=== PATIENT | male | born 1955 | race Caucasian/White ===

== ENCOUNTER 2018-10-12 07:02 | Emergency (ER) | payer BC, OTHER ==
[~2018-10-12] VITALS: Ht 165.1 cm; Wt 90.7 kg
[~2018-10-12 07:02] MED LIST: AMOXICILLIN; CEFDINIR300 MG PO; PREDNISONE10 M2; PYRIDIUM200 M1 PO; Z.0.CEFTIN500 MG PO; Z.0.ENABLEX7.5 MG PO; Z.0.NORCO 10-325 T1 PO; Z.0.PREDNISONE10 MG PO; [UNRECOGNIZED DRUG - OTHER] PO
[2018-10-12 07:44] VITALS: BP 148/78
== END 2018-10-12 07:45 | disposition left against medical advice (07) ==
LOC: ER 07:02
DX: N50.1 Vascular disorders of male genital organs (principal)

== ENCOUNTER → 2022-02-21 | Outpatient (CLI) | payer MEDICARE, OTHER | LOC: RAD 15:09 | DX: R06.02 Shortness of breath (principal); R60.9 Edema, unspecified | CPT/HCPCS: 71046 ==

== ENCOUNTER → 2022-04-25 | Outpatient (CLI) | payer MEDICARE, OTHER | LOC: US 10:26 | PROVIDERS: ATTEND Internal Medicine Medical Oncology | DX: C91.10 Chronic lymphocytic leukemia of B-cell type not having achieved remission (principal) | CPT/HCPCS: 71046; 76700; 76857 ==

== ENCOUNTER 2022-05-28 01:19 | Inpatient (IN) | payer MEDICARE, OTHER ==
[~2022-05-28] VITALS: Ht 165.1 cm; Wt 78.5 kg
[2022-05-28 01:45] LABS: EOSINOPHILS # (AUTO) 0.1 (0.0-0.4); EOSINOPHILS % 8.7 % (0.0-6.0); HEMATOCRIT 23.1 % (38.2-49.6); LYMPHOCYTES # (AUTO) 0.3 (1.0-3.2); LYMPHOCYTES % 29.6 % (18.0-39.1); MEAN CORPUSCULAR HEMOGLOBIN 29.3 pg (28-32); MEAN CORPUSCULAR HGB CONC 29.4 g/dL (31-35); MEAN CORPUSCULAR VOLUME 99.6 fL (81-99); MONOCYTES % 1.7 % (4.4-11.3); NEUTROPHILS # (AUTO) 0.7 (2.1-6.9); NEUTROPHILS % 59.1 % (38.7-80.0); PLATELET COUNT 84 x10e3/uL (140-360); RED BLOOD COUNT 2.32 x10e6/uL (4.3-5.7); RED CELL DISTRIBUTION WIDTH 16.9 % (11.7-14.4)
[2022-05-28] MEDS ORDERED: ACETAMINOPHEN 325 MG TAB PO ONE (01:45)
[2022-05-28] MEDS ORDERED: SODIUM CHLORIDE 0.9% 1000ML 1,000 ML IV SCH ×2 (01:45)
[2022-05-28] MEDS ORDERED: DIPHENHYDRAMINE HCL INJ 50 MG/ML VIAL IV ONE (01:45)
[2022-05-28 01:47] LABS: HEMOGLOBIN 7.1 g/dL (14.0-18.0)
[2022-05-28] MEDS: Vancomycin IV 1 GM in SODIUM CHLORIDE 0.9% 250ML 250 ML IV SCH ×3 (01:48→12:59)
[2022-05-28 01:49] LABS: INR 1.08
[2022-05-28] MEDS: FAMOTIDINE 20 MG/2 ML VIAL IV SCH ×2 (01:49→17:26)
[2022-05-28 01:50] LABS: PARTIAL THROMBOPLASTIN TIME 42.1 seconds (23.8-35.5)
[2022-05-28] MEDS ORDERED: Vancomycin IV 1 GM VIAL ONE (01:54)
[2022-05-28] MEDS ORDERED: PIPERACILLIN/TAZOBACTAM 3.375 GM VIAL ONE (01:54)
[2022-05-28] MEDS ORDERED: SODIUM CHLORIDE 0.9% 250ML 250 ML ONE ×2 (01:55→13:09)
[2022-05-28 01:58] LABS: ALBUMIN 3.5 g/dL (3.5-5.0); ALBUMIN/GLOBULIN RATIO 1.3 (0.8-2.0); ANION GAP 12.7 mmol/L (8-16); CALCIUM 8.9 mg/dL (8.4-10.2); CREATININE, SERUM 1.24 mg/dL (0.72-1.25); POTASSIUM 3.7 mmol/L (3.5-5.1)
[2022-05-28] MEDS ORDERED: SODIUM CHLORIDE 0.9% 1000ML 2,000 ML ONE (02:04)
[2022-05-28 02:07] LABS: INFLUENZAE A&B ANTIGEN (RAPID) NEGATIVE (NEGATIVE); RESPIRATORY SYNC. VIRUS NEGATIVE (NEGATIVE)
[2022-05-28 03:35] LABS: CLARITY,URINE CLEAR (CLEAR); COLOR,URINE YELLOW (YELLOW); KETONES,URINE NEGATIVE (NEGATIVE); LEUKOCYTE ESTERASE ,URINE NEGATIVE (NEGATIVE); NITRITE,URINE NEGATIVE (NEGATIVE); PROTEIN,URINE DIPSTICK 1+ (NEGATIVE); URINE UROBILINOGEN 0.2 mg/dL (0.2 - 1)
[2022-05-28 03:40] LABS: AMORPHOUS SEDIMENT,URINE FEW (FEW); BACTERIA,URINE FEW /HPF; EPITHELIAL CELLS,URINE RARE /LPF; RBC,URINE 0-5 /HPF (0-5); WBC,URINE (MAN) 0-5 /HPF (0-5)
[2022-05-28] MEDS ORDERED: ONDANSETRON HCL INJ 2MG/ML 2ML 2 MG/ML VIAL IV PRN (04:15)
[2022-05-28] MEDS ORDERED: DIPHENHYDRAMINE HCL INJ 50 MG/ML VIAL IV PRN (04:15)
[2022-05-28] MEDS: SODIUM CHLORIDE 0.9% 1000ML 1,000 ML IV SCH ×2 (04:58→17:26)
[2022-05-28 06:20] VITALS: BP 96/54
[2022-05-28 08:30] VITALS: BP 96/54
[2022-05-28 08:34] VITALS: BP 109/61
[2022-05-28] MEDS ORDERED: ALLOPURINOL300 MG PO (11:27)
[2022-05-28] MEDS ORDERED: FLONASE ALLERG9.9 ML INH (11:31)
[2022-05-28] MEDS ORDERED: FOLIC ACID20 MG PO (11:31)
[2022-05-28] MEDS ORDERED: UBIQUINOL (11:31)
[2022-05-28] MEDS ORDERED: OMEGA FISH OIL PO (11:34)
[2022-05-28] MEDS ORDERED: HYDROCORTISON28.4 G2 TOP (11:35)
[2022-05-28 11:53] VITALS: BP 97/48
[2022-05-28] MEDS: FILGRASTIM-AAFI 480 MCG/0.8 ML SYRINGE SQ SCH (11:57)
[2022-05-28 16:17] VITALS: BP 100/55
[2022-05-28 20:00] VITALS: BP 106/53
[2022-05-29] VITALS (7 sets, daily range): BP systolic 85–120; BP diastolic 43–73
[2022-05-29] MEDS: Vancomycin IV 1 GM in SODIUM CHLORIDE 0.9% 250ML 250 ML IV SCH ×3 (01:55→17:35)
[2022-05-29 05:14] LABS: BASOPHILS % 0.6 % (0.0-1.0); EOSINOPHILS # (AUTO) 0.2 (0.0-0.4); EOSINOPHILS % 9.9 % (0.0-6.0); HEMATOCRIT 20.9 % (38.2-49.6); LYMPHOCYTES # (AUTO) 0.5 (1.0-3.2); LYMPHOCYTES % 28.2 % (18.0-39.1); MEAN CORPUSCULAR HEMOGLOBIN 28.8 pg (28-32); MEAN CORPUSCULAR HGB CONC 28.7 g/dL (31-35); MEAN CORPUSCULAR VOLUME 100.5 fL (81-99); MONOCYTES # (AUTO) 0.1 (0.2-0.8); MONOCYTES % 3.3 % (4.4-11.3); NEUTROPHILS % 56.3 % (38.7-80.0); PLATELET COUNT 81 x10e3/uL (140-360); RED BLOOD COUNT 2.08 x10e6/uL (4.3-5.7); RED CELL DISTRIBUTION WIDTH 16.6 % (11.7-14.4)
[2022-05-29 05:33] LABS: ALBUMIN 2.9 g/dL (3.5-5.0); ALBUMIN/GLOBULIN RATIO 1.4 (0.8-2.0); ANION GAP 13.4 mmol/L (8-16); CALCIUM 8.1 mg/dL (8.4-10.2); CREATININE, SERUM 1.27 mg/dL (0.72-1.25); POTASSIUM 4.4 mmol/L (3.5-5.1)
[2022-05-29] MEDS: FILGRASTIM-AAFI 480 MCG/0.8 ML SYRINGE SQ SCH (05:52)
[2022-05-29] MEDS: SODIUM CHLORIDE 0.9% 1000ML 1,000 ML IV SCH (05:53)
[2022-05-29] MEDS: FAMOTIDINE 20 MG/2 ML VIAL IV SCH ×2 (09:06→16:45)
[2022-05-29] MEDS ORDERED: SODIUM CHLORIDE 0.9% 250ML 250 ML IV NR (11:00)
[2022-05-29 11:33] LABS: BAND NEUTROPHILS % (MANUAL) 11 %; EOSINOPHILS % (MANUAL) 11 % (0-7); LYMPHOCYTES % (MANUAL) 41 % (19-48); METAMYELOCYTES % (MANUAL) 1 % (0-0); MONOCYTES % (MANUAL) 4 % (3.4-9.0); NEUTROPHILS % (MANUAL) 31 % (40-74)
[2022-05-29 11:43] LABS: HYPOCHROMASIA MODERATE; PLATELET ESTIMATE SLIGHTLY DECREASED; PLATELET MORPHOLOGY COMMENT NORMAL
[2022-05-29] MEDS ORDERED: SODIUM CHLORIDE 0.9% 1000ML 1,000 ML IV SCH (12:15)
[2022-05-29] MEDS ORDERED: SODIUM CHLORIDE 0.9% 1000ML 1,000 ML IV ONE (13:30)
[2022-05-29] MEDS ORDERED: SODIUM CHLORIDE 0.9% 250ML 250 ML ONE (14:57)
[2022-05-29] MEDS: ZINC ACETATE TP SCH (15:00)
[2022-05-29] MEDS: CALAMINE LOTION 4 OZ BOTTLE TP SCH (15:00)
[2022-05-29] MEDS: PRAMOXINE TP SCH (15:00)
[2022-05-29] MEDS: ACETAMINOPHEN 325 MG TAB PO PRN ×2 (16:45→22:50)
[2022-05-30] VITALS: BP_SYST 84; BP_SYST 96; BP_DIAS 42; BP_DIAS 43
[2022-05-30] MEDS: PRAMOXINE TP SCH ×4 (03:10→20:56)
[2022-05-30] MEDS: CALAMINE LOTION 4 OZ BOTTLE TP SCH ×2 (03:10→08:11)
[2022-05-30] MEDS: ZINC ACETATE TP SCH ×4 (03:10→20:56)
[2022-05-30] MEDS: SODIUM CHLORIDE 0.9% 1000ML 1,000 ML IV SCH ×3 (03:11→23:15)
[2022-05-30] MEDS: Vancomycin IV 1 GM in SODIUM CHLORIDE 0.9% 250ML 250 ML IV SCH ×2 (03:11→13:45)
[2022-05-30 04:00] VITALS: BP 126/73
[2022-05-30] MEDS: FILGRASTIM-AAFI 480 MCG/0.8 ML SYRINGE SQ SCH (05:27)
[2022-05-30 06:10] LABS: BASOPHILS % 0.5 % (0.0-1.0); EOSINOPHILS # (AUTO) 0.3 (0.0-0.4); EOSINOPHILS % 13.6 % (0.0-6.0); HEMATOCRIT 23.4 % (38.2-49.6); HEMOGLOBIN 6.7 g/dL (14.0-18.0); LYMPHOCYTES # (AUTO) 0.6 (1.0-3.2); LYMPHOCYTES % 27.3 % (18.0-39.1); MEAN CORPUSCULAR HEMOGLOBIN 28.6 pg (28-32); MEAN CORPUSCULAR HGB CONC 28.6 g/dL (31-35); MONOCYTES # (AUTO) 0.1 (0.2-0.8); MONOCYTES % 3.2 % (4.4-11.3); NEUTROPHILS % 43.1 % (38.7-80.0); PLATELET COUNT 84 x10e3/uL (140-360); RED BLOOD COUNT 2.34 x10e6/uL (4.3-5.7)
[2022-05-30 06:43] LABS: ALBUMIN 2.8 g/dL (3.5-5.0); ALBUMIN/GLOBULIN RATIO 1.3 (0.8-2.0); ANION GAP 13.6 mmol/L (8-16); CALCIUM 7.8 mg/dL (8.4-10.2); CREATININE, SERUM 1.1 mg/dL (0.72-1.25); POTASSIUM 3.6 mmol/L (3.5-5.1)
[2022-05-30] MEDS: FAMOTIDINE 20 MG/2 ML VIAL IV SCH ×2 (08:11→17:37)
[2022-05-30 09:15] LABS: BAND NEUTROPHILS % (MANUAL) 1 %; EOSINOPHILS % (MANUAL) 13 % (0-7); LYMPHOCYTES % (MANUAL) 17 % (19-48); MONOCYTES % (MANUAL) 3 % (3.4-9.0); MYELOCYTES % (MANUAL) 1 % (0-0); NEUTROPHILS % (MANUAL) 64 % (40-74); PLATELET ESTIMATE ADEQUATE; PLATELET MORPHOLOGY COMMENT NORMAL; RBC MORPHOLOGY COMMENT NORMAL
[2022-05-30] MEDS ORDERED: SODIUM CHLORIDE 0.9% 250ML 250 ML IV ONE (09:15)
[2022-05-30 09:23] VITALS: BP 119/63
[2022-05-30 09:56] LABS: BASOPHILS % 0.5 % (0.0-1.0); EOSINOPHILS # (AUTO) 0.2 (0.0-0.4); EOSINOPHILS % 11.1 % (0.0-6.0); HEMATOCRIT 23.9 % (38.2-49.6); LYMPHOCYTES # (AUTO) 0.4 (1.0-3.2); LYMPHOCYTES % 22.6 % (18.0-39.1); MEAN CORPUSCULAR HEMOGLOBIN 28.8 pg (28-32); MEAN CORPUSCULAR HGB CONC 28.9 g/dL (31-35); MEAN CORPUSCULAR VOLUME 99.6 fL (81-99); MONOCYTES # (AUTO) 0.1 (0.2-0.8); MONOCYTES % 3.2 % (4.4-11.3); NEUTROPHILS # (AUTO) 0.9 (2.1-6.9); NEUTROPHILS % 44.7 % (38.7-80.0); PLATELET COUNT 84 x10e3/uL (140-360); RED CELL DISTRIBUTION WIDTH 17.1 % (11.7-14.4)
[2022-05-30] MEDS ORDERED: ONDANSETRON HCL 4 MG ORAL DISINTEGRATING TAB PO PRN (10:15)
[2022-05-30 10:21] LABS: HEMOGLOBIN 6.9 g/dL (14.0-18.0)
[2022-05-30] MEDS: ACETAMINOPHEN 325 MG TAB PO PRN ×3 (10:51→23:45)
[2022-05-30 13:56] LABS: EOSINOPHILS % (MANUAL) 4 % (0-7); LYMPHOCYTES % (MANUAL) 21 % (19-48); METAMYELOCYTES % (MANUAL) 1 % (0-0); MONOCYTES % (MANUAL) 1 % (3.4-9.0); NEUTROPHILS % (MANUAL) 73 % (40-74); PLATELET ESTIMATE MODERATELY DECREASED; PLATELET MORPHOLOGY COMMENT NORMAL; RBC MORPHOLOGY COMMENT NORMAL
[2022-05-30 20:00] VITALS: BP 103/49
[2022-05-30 21:00] VITALS: BP 103/49
[2022-05-30 23:58] VITALS: BP 112/53
[2022-05-31] MEDS: Vancomycin IV 1 GM in SODIUM CHLORIDE 0.9% 250ML 250 ML IV SCH ×2 (01:30→14:20)
[2022-05-31 04:00] VITALS: BP 115/49
[2022-05-31] MEDS: FILGRASTIM-AAFI 480 MCG/0.8 ML SYRINGE SQ SCH (06:03)
[2022-05-31] MEDS: ACETAMINOPHEN 325 MG TAB PO PRN ×3 (06:20→22:25)
[2022-05-31 06:23] LABS: BASOPHILS % 0.8 % (0.0-1.0); EOSINOPHILS # (AUTO) 0.4 (0.0-0.4); EOSINOPHILS % 14.8 % (0.0-6.0); HEMATOCRIT 25.8 % (38.2-49.6); HEMOGLOBIN 8.4 g/dL (14.0-18.0); LYMPHOCYTES # (AUTO) 0.5 (1.0-3.2); LYMPHOCYTES % 20.1 % (18.0-39.1); MEAN CORPUSCULAR HGB CONC 32.6 g/dL (31-35); MEAN CORPUSCULAR VOLUME 95.2 fL (81-99); MONOCYTES # (AUTO) 0.1 (0.2-0.8); MONOCYTES % 3.7 % (4.4-11.3); NEUTROPHILS # (AUTO) 1.5 (2.1-6.9); NEUTROPHILS % 60.2 % (38.7-80.0); PLATELET COUNT 80 x10e3/uL (140-360); RED BLOOD COUNT 2.71 x10e6/uL (4.3-5.7); RED CELL DISTRIBUTION WIDTH 17.5 % (11.7-14.4)
[2022-05-31] MEDS: FAMOTIDINE 20 MG/2 ML VIAL IV SCH ×2 (08:12→16:13)
[2022-05-31] MEDS: ZINC ACETATE TP SCH ×3 (08:15→21:00)
[2022-05-31] MEDS: PRAMOXINE TP SCH ×3 (08:15→21:00)
[2022-05-31 08:21] LABS: ANISOCYTOSIS SLIGHT; BAND NEUTROPHILS % (MANUAL) 1 %; EOSINOPHILS % (MANUAL) 17 % (0-7); HYPOCHROMASIA SLIGHT; LYMPHOCYTES % (MANUAL) 16 % (19-48); MONOCYTES % (MANUAL) 3 % (3.4-9.0); NEUTROPHILS % (MANUAL) 62 % (40-74); OVALOCYTES FEW; PLATELET ESTIMATE MODERATELY DECREASED; PLATELET MORPHOLOGY COMMENT NORMAL; RBC MORPHOLOGY COMMENT NORMAL
[2022-05-31 08:22] LABS: TOXIC GRANULATION MODERATE
[2022-05-31 08:25] VITALS: BP 125/70
[2022-05-31] MEDS: HYDROXYZINE HCL 10 MG TAB PO PRN ×3 (09:52→22:25)
[2022-05-31 10:08] VITALS: BP 125/70
[2022-05-31 13:24] VITALS: BP 101/63
[2022-05-31] MEDS: SODIUM CHLORIDE 0.9% 1000ML 1,000 ML IV SCH (14:16)
[2022-05-31 17:27] VITALS: BP 132/82
[2022-05-31 23:41] VITALS: BP 95/45
[2022-06-01] VITALS (8 sets, daily range): BP systolic 108–134; BP diastolic 20–69
[2022-06-01] MEDS: Vancomycin IV 1 GM in SODIUM CHLORIDE 0.9% 250ML 250 ML IV SCH ×2 (02:09→12:56)
[2022-06-01] MEDS: SODIUM CHLORIDE 0.9% 1000ML 1,000 ML IV SCH ×3 (02:09→22:10)
[2022-06-01 05:46] LABS: BASOPHILS % 0.4 % (0.0-1.0); EOSINOPHILS # (AUTO) 0.4 (0.0-0.4); EOSINOPHILS % 15.7 % (0.0-6.0); HEMATOCRIT 26.7 % (38.2-49.6); HEMOGLOBIN 7.9 g/dL (14.0-18.0); LYMPHOCYTES # (AUTO) 0.5 (1.0-3.2); LYMPHOCYTES % 20.2 % (18.0-39.1); MEAN CORPUSCULAR HEMOGLOBIN 28.7 pg (28-32); MEAN CORPUSCULAR HGB CONC 29.6 g/dL (31-35); MEAN CORPUSCULAR VOLUME 97.1 fL (81-99); MONOCYTES # (AUTO) 0.1 (0.2-0.8); MONOCYTES % 3.7 % (4.4-11.3); NEUTROPHILS # (AUTO) 1.6 (2.1-6.9); NEUTROPHILS % 58.9 % (38.7-80.0); RED BLOOD COUNT 2.75 x10e6/uL (4.3-5.7); RED CELL DISTRIBUTION WIDTH 16.5 % (11.7-14.4)
[2022-06-01 05:57] LABS: PLATELET COUNT 143 x10e3/uL (140-360)
[2022-06-01] MEDS: FILGRASTIM-AAFI 480 MCG/0.8 ML SYRINGE SQ SCH (06:36)
[2022-06-01] MEDS: HYDROXYZINE HCL 10 MG TAB PO PRN ×2 (06:36→22:11)
[2022-06-01 06:55] LABS: BAND NEUTROPHILS % (MANUAL) 1 %; EOSINOPHILS % (MANUAL) 17 % (0-7); LYMPHOCYTES % (MANUAL) 19 % (19-48); MONOCYTES % (MANUAL) 3 % (3.4-9.0); NEUTROPHILS % (MANUAL) 60 % (40-74)
[2022-06-01 06:56] LABS: ANISOCYTOSIS SLIGHT; PLATELET ESTIMATE ADEQUATE; PLATELET MORPHOLOGY COMMENT NORMAL; RBC MORPHOLOGY COMMENT ABNORMAL
[2022-06-01 06:57] LABS: HYPOCHROMASIA SLIGHT; OVALOCYTES FEW; TOXIC GRANULATION MODERATE
[2022-06-01] MEDS: ZINC ACETATE TP SCH ×4 (09:17→21:00)
[2022-06-01] MEDS: PRAMOXINE TP SCH ×4 (09:17→21:00)
[2022-06-01] MEDS: FAMOTIDINE 20 MG/2 ML VIAL IV SCH ×2 (09:17→17:28)
[2022-06-01] MEDS: ACETAMINOPHEN 325 MG TAB PO PRN (22:11)
[2022-06-02] VITALS (7 sets, daily range): BP systolic 95–144; BP diastolic 40–80
[2022-06-02] MEDS: Vancomycin IV 1 GM in SODIUM CHLORIDE 0.9% 250ML 250 ML IV SCH ×2 (02:00→16:30)
[2022-06-02 05:56] LABS: BASOPHILS # (AUTO) 0.1 (0.0-0.1); BASOPHILS % 2.2 % (0.0-1.0); EOSINOPHILS # (AUTO) 0.6 (0.0-0.4); EOSINOPHILS % 15.9 % (0.0-6.0); HEMATOCRIT 28.5 % (38.2-49.6); HEMOGLOBIN 8.4 g/dL (14.0-18.0); LYMPHOCYTES # (AUTO) 0.8 (1.0-3.2); LYMPHOCYTES % 21.4 % (18.0-39.1); MEAN CORPUSCULAR HEMOGLOBIN 29.9 pg (28-32); MEAN CORPUSCULAR HGB CONC 29.5 g/dL (31-35); MEAN CORPUSCULAR VOLUME 101.4 fL (81-99); MONOCYTES # (AUTO) 0.2 (0.2-0.8); MONOCYTES % 4.1 % (4.4-11.3); NEUTROPHILS % 55.3 % (38.7-80.0); PLATELET COUNT 163 x10e3/uL (140-360); RED BLOOD COUNT 2.81 x10e6/uL (4.3-5.7)
[2022-06-02] MEDS: FILGRASTIM-AAFI 480 MCG/0.8 ML SYRINGE SQ SCH (06:21)
[2022-06-02 06:56] LABS: BAND NEUTROPHILS % (MANUAL) 1 %; EOSINOPHILS % (MANUAL) 14 % (0-7); LYMPHOCYTES % (MANUAL) 23 % (19-48); MONOCYTES % (MANUAL) 1 % (3.4-9.0); NEUTROPHILS % (MANUAL) 61 % (40-74); NUCLEATED RED BLOOD CELLS 1
[2022-06-02 06:57] LABS: HYPOCHROMASIA MODERATE; OVALOCYTES FEW; PLATELET ESTIMATE ADEQUATE; PLATELET MORPHOLOGY COMMENT NORMAL; RBC MORPHOLOGY COMMENT ABNORMAL
[2022-06-02 06:58] LABS: ANISOCYTOSIS MODERATE; TOXIC GRANULATION SLIGHT
[2022-06-02] MEDS: PRAMOXINE TP SCH ×3 (09:00→20:18)
[2022-06-02] MEDS: ZINC ACETATE TP SCH ×3 (09:00→20:18)
[2022-06-02] MEDS: FAMOTIDINE 20 MG/2 ML VIAL IV SCH ×2 (09:33→17:00)
[2022-06-02] MEDS: HYDROXYZINE HCL 10 MG TAB PO PRN ×2 (09:36→23:35)
[2022-06-02] MEDS ORDERED: FUROSEMIDE INJ 10 MG/ML 4 ML VIAL IV ONE (10:45)
[2022-06-02] MEDS: ACETAMINOPHEN 325 MG TAB PO PRN (20:18)
[2022-06-03] VITALS (8 sets, daily range): BP systolic 95–109; BP diastolic 45–70
[2022-06-03] MEDS: Vancomycin IV 1 GM in SODIUM CHLORIDE 0.9% 250ML 250 ML IV SCH ×2 (01:45→13:45)
[2022-06-03] MEDS: ACETAMINOPHEN 325 MG TAB PO PRN (05:27)
[2022-06-03] MEDS: HYDROXYZINE HCL 10 MG TAB PO PRN ×2 (05:27→10:12)
[2022-06-03] MEDS: FILGRASTIM-AAFI 480 MCG/0.8 ML SYRINGE SQ SCH (05:27)
[2022-06-03] MEDS: ZINC ACETATE TP SCH ×3 (09:59→21:00)
[2022-06-03] MEDS: PRAMOXINE TP SCH ×3 (09:59→21:00)
[2022-06-03] MEDS: FAMOTIDINE 20 MG/2 ML VIAL IV SCH (09:59)
[2022-06-03] MEDS ORDERED: Vancomycin IV 1 GM VIAL ONE (13:28)
[2022-06-03] MEDS ORDERED: SODIUM CHLORIDE 0.9% 250ML 0 ML ONE (13:29)
[2022-06-03 14:08] LABS: BASOPHILS % 0.5 % (0.0-1.0); EOSINOPHILS # (AUTO) 0.9 (0.0-0.4); HEMOGLOBIN 8.8 g/dL (14.0-18.0); LYMPHOCYTES # (AUTO) 0.8 (1.0-3.2); LYMPHOCYTES % 14.2 % (18.0-39.1); MEAN CORPUSCULAR HEMOGLOBIN 28.9 pg (28-32); MEAN CORPUSCULAR HGB CONC 29.3 g/dL (31-35); MEAN CORPUSCULAR VOLUME 98.7 fL (81-99); MONOCYTES # (AUTO) 0.2 (0.2-0.8); MONOCYTES % 2.8 % (4.4-11.3); NEUTROPHILS # (AUTO) 3.7 (2.1-6.9); NEUTROPHILS % 65.4 % (38.7-80.0); PLATELET COUNT 222 x10e3/uL (140-360); RED BLOOD COUNT 3.04 x10e6/uL (4.3-5.7); RED CELL DISTRIBUTION WIDTH 16.6 % (11.7-14.4)
[2022-06-03] MEDS ORDERED: FUROSEMIDE INJ 10 MG/ML 4 ML VIAL IV ONE (15:15)
[2022-06-03] MEDS: FAMOTIDINE 20 MG TAB PO SCH (18:04)
[2022-06-03] MEDS: KETOROLAC TROMETHAMINE 30 MG/ML VIAL IV SCH (18:05)
[2022-06-04] VITALS (8 sets, daily range): BP systolic 96–141; BP diastolic 47–70
[2022-06-04] MEDS: KETOROLAC TROMETHAMINE 30 MG/ML VIAL IV SCH ×4 (00:28→17:07)
[2022-06-04 05:49] LABS: BASOPHILS % 0.5 % (0.0-1.0); EOSINOPHILS # (AUTO) 0.8 (0.0-0.4); EOSINOPHILS % 19.9 % (0.0-6.0); HEMATOCRIT 27.3 % (38.2-49.6); HEMOGLOBIN 7.9 g/dL (14.0-18.0); LYMPHOCYTES # (AUTO) 0.6 (1.0-3.2); LYMPHOCYTES % 14.6 % (18.0-39.1); MEAN CORPUSCULAR HEMOGLOBIN 28.5 pg (28-32); MEAN CORPUSCULAR HGB CONC 28.9 g/dL (31-35); MEAN CORPUSCULAR VOLUME 98.6 fL (81-99); MONOCYTES # (AUTO) 0.1 (0.2-0.8); MONOCYTES % 2.2 % (4.4-11.3); NEUTROPHILS # (AUTO) 2.5 (2.1-6.9); NEUTROPHILS % 59.2 % (38.7-80.0); PLATELET COUNT 246 x10e3/uL (140-360); RED BLOOD COUNT 2.77 x10e6/uL (4.3-5.7); RED CELL DISTRIBUTION WIDTH 16.1 % (11.7-14.4)
[2022-06-04] MEDS: FILGRASTIM-AAFI 480 MCG/0.8 ML SYRINGE SQ SCH (05:53)
[2022-06-04 06:00] LABS: ALBUMIN 2.5 g/dL (3.5-5.0); ALBUMIN/GLOBULIN RATIO 0.9 (0.8-2.0); ANION GAP 16.2 mmol/L (8-16); CALCIUM 8.4 mg/dL (8.4-10.2); CREATININE, SERUM 1.22 mg/dL (0.72-1.25); POTASSIUM 3.2 mmol/L (3.5-5.1)
[2022-06-04] MEDS: ZINC ACETATE TP SCH ×3 (09:00→22:13)
[2022-06-04] MEDS: PRAMOXINE TP SCH ×3 (09:00→22:13)
[2022-06-04] MEDS: FAMOTIDINE 20 MG TAB PO SCH ×2 (10:17→17:06)
[2022-06-04] MEDS ORDERED: POTASSIUM CHLORIDE 10MEQ EA PO ONE (14:00)
[2022-06-04] MEDS ORDERED: FUROSEMIDE INJ 10 MG/ML 4 ML VIAL IV ONE (14:00)
[2022-06-05] VITALS (7 sets, daily range): BP systolic 109–114; BP diastolic 57–64
[2022-06-05] MEDS: KETOROLAC TROMETHAMINE 30 MG/ML VIAL IV SCH ×4 (05:14→18:00)
[2022-06-05] MEDS: ACETAMINOPHEN 325 MG TAB PO PRN ×2 (05:30→16:45)
[2022-06-05 07:18] LABS: BASOPHILS # (AUTO) 0.1 (0.0-0.1); BASOPHILS % 0.9 % (0.0-1.0); EOSINOPHILS # (AUTO) 1.1 (0.0-0.4); EOSINOPHILS % 15.2 % (0.0-6.0); HEMATOCRIT 23.1 % (38.2-49.6); HEMOGLOBIN 7.3 g/dL (14.0-18.0); LYMPHOCYTES # (AUTO) 0.9 (1.0-3.2); LYMPHOCYTES % 13.1 % (18.0-39.1); MEAN CORPUSCULAR HEMOGLOBIN 29.2 pg (28-32); MEAN CORPUSCULAR HGB CONC 31.6 g/dL (31-35); MEAN CORPUSCULAR VOLUME 92.4 fL (81-99); MONOCYTES # (AUTO) 0.2 (0.2-0.8); MONOCYTES % 2.8 % (4.4-11.3); NEUTROPHILS # (AUTO) 4.3 (2.1-6.9); NEUTROPHILS % 62.8 % (38.7-80.0); PLATELET COUNT 243 x10e3/uL (140-360); RED CELL DISTRIBUTION WIDTH 16.5 % (11.7-14.4)
[2022-06-05 07:55] LABS: ANION GAP 14.3 mmol/L (8-16); CALCIUM 8.1 mg/dL (8.4-10.2); CREATININE, SERUM 1.08 mg/dL (0.72-1.25); POTASSIUM 3.3 mmol/L (3.5-5.1)
[2022-06-05] MEDS: PRAMOXINE TP SCH ×3 (09:00→20:25)
[2022-06-05] MEDS: ZINC ACETATE TP SCH ×3 (09:00→20:25)
[2022-06-05] MEDS ORDERED: SODIUM CHLORIDE 0.9% 250ML 250 ML IV ONE (10:15)
[2022-06-05] MEDS ORDERED: POTASSIUM CHLORIDE 10MEQ EA PO ONE (10:15)
[2022-06-05] MEDS ORDERED: FUROSEMIDE INJ 10 MG/ML 4 ML VIAL IV ONE (10:15)
[2022-06-05] MEDS: FAMOTIDINE 20 MG TAB PO SCH ×2 (11:00→16:30)
[2022-06-05 12:07] LABS: EOSINOPHILS % (MANUAL) 2 % (0-7); LYMPHOCYTES % (MANUAL) 6 % (19-48); MONOCYTES % (MANUAL) 4 % (3.4-9.0); NEUTROPHILS % (MANUAL) 88 % (40-74); PLATELET ESTIMATE ADEQUATE; PLATELET MORPHOLOGY COMMENT NORMAL; RBC MORPHOLOGY COMMENT NORMAL
[2022-06-05] MEDS ORDERED: SODIUM CHLORIDE 0.9% 250ML 250 ML ONE (13:43)
[2022-06-05] MEDS ORDERED: FUROSEMIDE INJ 10 MG/ML 2 ML VIAL IV ONE (17:00)
[2022-06-05] MEDS: HYDROXYZINE HCL 10 MG TAB PO PRN (21:37)
[2022-06-06] VITALS: BP 125/63
[2022-06-06 04:00] VITALS: BP 106/53
[2022-06-06] MEDS: KETOROLAC TROMETHAMINE 30 MG/ML VIAL IV SCH ×2 (05:12)
[2022-06-06 05:43] LABS: BASOPHILS # (AUTO) 0.1 (0.0-0.1); BASOPHILS % 1.3 % (0.0-1.0); EOSINOPHILS # (AUTO) 1.3 (0.0-0.4); EOSINOPHILS % 19.1 % (0.0-6.0); HEMATOCRIT 29.3 % (38.2-49.6); HEMOGLOBIN 9.3 g/dL (14.0-18.0); LYMPHOCYTES # (AUTO) 0.9 (1.0-3.2); LYMPHOCYTES % 12.3 % (18.0-39.1); MEAN CORPUSCULAR HEMOGLOBIN 29.1 pg (28-32); MEAN CORPUSCULAR HGB CONC 31.7 g/dL (31-35); MEAN CORPUSCULAR VOLUME 91.6 fL (81-99); MONOCYTES # (AUTO) 0.2 (0.2-0.8); MONOCYTES % 3.3 % (4.4-11.3); NEUTROPHILS % 58.5 % (38.7-80.0); PLATELET COUNT 260 x10e3/uL (140-360); RED CELL DISTRIBUTION WIDTH 16.7 % (11.7-14.4)
[2022-06-06 06:23] LABS: ANION GAP 14.6 mmol/L (8-16); CALCIUM 8.5 mg/dL (8.4-10.2); CREATININE, SERUM 1.23 mg/dL (0.72-1.25); POTASSIUM 3.6 mmol/L (3.5-5.1)
[2022-06-06 08:06] VITALS: BP 130/70
[2022-06-06] MEDS: ZINC ACETATE TP SCH (09:00)
[2022-06-06] MEDS: PRAMOXINE TP SCH (09:00)
[2022-06-06] MEDS: FAMOTIDINE 20 MG TAB PO SCH (09:04)
[2022-06-06 09:46] LABS: BAND NEUTROPHILS % (MANUAL) 1 %; EOSINOPHILS % (MANUAL) 19 % (0-7); LYMPHOCYTES % (MANUAL) 12 % (19-48); MONOCYTES % (MANUAL) 4 % (3.4-9.0); MYELOCYTES % (MANUAL) 1 % (0-0); NEUTROPHILS % (MANUAL) 63 % (40-74); PLATELET ESTIMATE ADEQUATE; PLATELET MORPHOLOGY COMMENT NORMAL; RBC MORPHOLOGY COMMENT NORMAL
[2022-06-06 11:27] VITALS: BP 109/70
[2022-06-06] MEDS ORDERED: LASIX40 MG PO (13:26)
[2022-06-06] MEDS ORDERED: POTASSIUM CHLO20 MEQ PO (13:28)
[2022-06-06] MEDS ORDERED: POTASSIUM CHLO20 ME1 PO (13:30)
== END 2022-06-06 14:33 | disposition home or self-care (01) | DRG 813 ==
LOC: ER 01:25 → ERHOLD 04:12 → MED/SURG2 06:20
PROC: 8E0ZXY6 Isolation (ICD-10-PCS; principal; 2022-05-28)
PROC: 30233N1 Transfusion of Nonautologous Red Blood Cells into Peripheral Vein, Percutaneous Approach (ICD-10-PCS; 2022-05-29)
DX: D69.59 Other secondary thrombocytopenia (principal); C91.00 Acute lymphoblastic leukemia not having achieved remission; I50.32 Chronic diastolic (congestive) heart failure; E44.0 Moderate protein-calorie malnutrition; D70.1 Agranulocytosis secondary to cancer chemotherapy; R50.81 Fever presenting with conditions classified elsewhere; T45.1X5A Adverse effect of antineoplastic and immunosuppressive drugs, initial encounter; I11.0 Hypertensive heart disease with heart failure; K76.0 Fatty (change of) liver, not elsewhere classified; E78.5 Hyperlipidemia, unspecified; Z68.28 Body mass index [BMI] 28.0-28.9, adult; D50.9 Iron deficiency anemia, unspecified; Z20.822 Contact with and (suspected) exposure to COVID-19
CPT/HCPCS: 36415; 71045; 80048; 80053; 80202; 81001; 83605; 83880; 85025; 85045; 85610; 85651; 85730; 86850; 86900; 86920; 87040; 87086; 87400; 87420; 93005; 96361; 99284; J1200; J1442; J1885; J1940; J2543; J3370; J3410; J7030; J7050; P9016

== ENCOUNTER 2022-08-08 09:52 | Inpatient (IN) | payer MEDICARE, OTHER ==
[~2022-08-08] VITALS: Ht 165.1 cm; Wt 66.3 kg
[2022-08-08] VITALS (33 sets, daily range): BP systolic 58–129; BP diastolic 35–96
[~2022-08-08 09:52] MED LIST changes: +ALLOPURINOL300 MG PO; +BENADRYL25 M1 PO; +COQMAX UBIQUIN200 MG PO; +FLONASE ALLERG9.9 ML INH; +FOLIC ACID20 MG PO; +HYDROCORTISON28.4 G2 TOP; +HYDROXYZINE HCL10 MG PO; +LASIX40 MG PO; +OMEGA FISH OIL PO; +POTASSIUM CHLO20 ME1 PO; +POTASSIUM CHLO20 MEQ PO; +SPIRONOLACTONE25 MG PO; +TYLENOL325 MG PO; +UBIQUINOL; +ZYRTEC10 M3 PO
[2022-08-08 10:25] LABS: BASOPHILS % 0.3 % (0.0-1.0); HEMATOCRIT 47.4 % (38.2-49.6); HEMOGLOBIN 14.7 g/dL (14.0-18.0); LYMPHOCYTES # (AUTO) 0.4 (1.0-3.2); LYMPHOCYTES % 4.5 % (18.0-39.1); MEAN CORPUSCULAR HEMOGLOBIN 27.4 pg (28-32); MEAN CORPUSCULAR VOLUME 88.3 fL (81-99); MONOCYTES # (AUTO) 0.8 (0.2-0.8); MONOCYTES % 8.5 % (4.4-11.3); NEUTROPHILS # (AUTO) 6.4 (2.1-6.9); NEUTROPHILS % 69.7 % (38.7-80.0); PLATELET COUNT 311 x10e3/uL (140-360); RED BLOOD COUNT 5.37 x10e6/uL (4.3-5.7); RED CELL DISTRIBUTION WIDTH 14.2 % (11.7-14.4)
[2022-08-08 10:38] LABS: INR 1.09; PROTHROMBIN TIME 14.3 seconds (11.9-14.5)
[2022-08-08 10:39] LABS: PARTIAL THROMBOPLASTIN TIME 29.2 seconds (23.8-35.5)
[2022-08-08 10:42] LABS: CLARITY,URINE CLEAR (CLEAR); COLOR,URINE YELLOW (YELLOW); LEUKOCYTE ESTERASE ,URINE NEGATIVE (NEGATIVE); NITRITE,URINE NEGATIVE (NEGATIVE)
[2022-08-08 10:43] LABS: KETONES,URINE TRACE (NEGATIVE); PROTEIN,URINE DIPSTICK 2+ (NEGATIVE); URINE UROBILINOGEN 0.2 mg/dL (0.2 - 1)
[2022-08-08 11:00] LABS: BACTERIA,URINE FEW /HPF; EPITHELIAL CELLS,URINE FEW /LPF; RBC,URINE 21-50 /HPF (0-5)
[2022-08-08 11:33] LABS: ALBUMIN 2.9 g/dL (3.5-5.0); ALBUMIN/GLOBULIN RATIO 1.3 (0.8-2.0); ANION GAP 18.5 mmol/L (8-16); CALCIUM 8.7 mg/dL (8.4-10.2); CREATININE, SERUM 1.89 mg/dL (0.72-1.25); POTASSIUM 4.5 mmol/L (3.5-5.1)
[2022-08-08] MEDS ORDERED: LACTATED RINGER'S 1,000 ML INJ ONE ×2 (11:45→13:30)
[2022-08-08] MEDS ORDERED: IOPAMIDOL 370 MG/ML 100 ML INFUS..BTL INJ ONE (11:56)
[2022-08-08 12:29] LABS: LYMPHOCYTES % (MANUAL) 8 % (19-48); MONOCYTES % (MANUAL) 14 % (3.4-9.0); NEUTROPHILS % (MANUAL) 78 % (40-74)
[2022-08-08 12:30] LABS: PLATELET ESTIMATE ADEQUATE; PLATELET MORPHOLOGY COMMENT NORMAL; RBC MORPHOLOGY COMMENT NORMAL
[2022-08-08] MEDS ORDERED: ONDANSETRON HCL INJ 2MG/ML 2ML 2 MG/ML VIAL IV PRN ×2 (13:45→16:00)
[2022-08-08 14:17] LABS: AMPHETAMINES SCREEN,URINE NEGATIVE (NEGATIVE); BENZODIAZEPINES SCREEN,URINE NEGATIVE (NEGATIVE); PHENCYCLIDINE SCREEN,URINE NEGATIVE (NEGATIVE)
[2022-08-08] MEDS ORDERED: ACETAMINOPHEN 325 MG TAB PO PRN (16:00)
[2022-08-08] MEDS ORDERED: DIPHENHYDRAMINE HCL 25 MG CAP PO PRN (16:45)
[2022-08-08] MEDS: OMEGA 3 FISH OIL PO SCH (17:00)
[2022-08-08] MEDS: DIPHENOXYLATE/ATROPINE TAB PO PRN (17:47)
[2022-08-08] MEDS: HYDROXYZINE HCL 10 MG TAB PO SCH ×2 (17:47→23:52)
[2022-08-08] MEDS: ALLOPURINOL 300 MG TAB PO SCH (17:47)
[2022-08-08] MEDS: ACETAMINOPHEN 325 MG TAB PO SCH (17:48)
[2022-08-08] MEDS: VANCOMYCIN 250MG/5ML ORAL SOLN PO SCH ×2 (17:48→23:52)
[2022-08-08] MEDS: SODIUM CHLORIDE 0.9% 1000ML 1,000 ML IV SCH ×2 (17:49→23:52)
[2022-08-08] MEDS: UBIQUINOL PO SCH (21:00)
[2022-08-08] MEDS: NOREPINEPHRINE 8 MG/D5W 250 ML 250 ML IV SCH (22:55)
[2022-08-09] VITALS (75 sets, daily range): BP systolic 88–128; BP diastolic 41–80
[2022-08-09] MEDS: SODIUM CHLORIDE 0.9% 1000ML 1,000 ML IV SCH (05:43)
[2022-08-09] MEDS: HYDROXYZINE HCL 10 MG TAB PO SCH ×3 (05:43→18:19)
[2022-08-09] MEDS: VANCOMYCIN 250MG/5ML ORAL SOLN PO SCH ×3 (05:43→18:19)
[2022-08-09 07:20] LABS: ANION GAP 14.3 mmol/L (8-16); CALCIUM 7.7 mg/dL (8.4-10.2); CREATININE, SERUM 1.14 mg/dL (0.72-1.25); POTASSIUM 3.3 mmol/L (3.5-5.1)
[2022-08-09] MEDS: UBIQUINOL PO SCH ×4 (07:30→20:29)
[2022-08-09 07:57] LABS: BASOPHILS % 0.6 % (0.0-1.0); EOSINOPHILS % 0.9 % (0.0-6.0); HEMATOCRIT 31.9 % (38.2-49.6); LYMPHOCYTES # (AUTO) 0.2 (1.0-3.2); LYMPHOCYTES % 6.2 % (18.0-39.1); MEAN CORPUSCULAR HEMOGLOBIN 27.8 pg (28-32); MEAN CORPUSCULAR HGB CONC 33.2 g/dL (31-35); MONOCYTES # (AUTO) 0.5 (0.2-0.8); MONOCYTES % 15.5 % (4.4-11.3); NEUTROPHILS % 57.7 % (38.7-80.0); PLATELET COUNT 193 x10e3/uL (140-360); RED BLOOD COUNT 3.81 x10e6/uL (4.3-5.7); RED CELL DISTRIBUTION WIDTH 14.4 % (11.7-14.4)
[2022-08-09 08:13] LABS: HEMOGLOBIN 10.6 g/dL (14.0-18.0); MEAN CORPUSCULAR VOLUME 83.7 fL (81-99)
[2022-08-09] MEDS ORDERED: POTASSIUM CHLORIDE 20MEQ/100ML 200 ML IV ONE (08:30)
[2022-08-09] MEDS: FOLIC ACID 400 MCG PO SCH (09:00)
[2022-08-09] MEDS: OMEGA 3 FISH OIL PO SCH ×2 (09:00→17:00)
[2022-08-09] MEDS: ALLOPURINOL 300 MG TAB PO SCH ×2 (09:07→18:19)
[2022-08-09] MEDS: DIPHENOXYLATE/ATROPINE TAB PO PRN (09:07)
[2022-08-09] MEDS: LACTOBACILLUS ACIDOPHILUS CAPSULE PO SCH ×2 (09:07→18:18)
[2022-08-09] MEDS: ACETAMINOPHEN 325 MG TAB PO SCH ×2 (09:08→18:19)
[2022-08-09 09:27] LABS: BAND NEUTROPHILS % (MANUAL) 4 %; LYMPHOCYTES % (MANUAL) 3 % (19-48); MONOCYTES % (MANUAL) 21 % (3.4-9.0); NEUTROPHILS % (MANUAL) 72 % (40-74)
[2022-08-09] MEDS: SODIUM BICARBONATE 8.4% 50 ML in SODIUM CHLORIDE 0.45% 1,000 ML IV SCH ×2 (09:27→18:20)
[2022-08-09 09:28] LABS: PLATELET ESTIMATE ADEQUATE; PLATELET MORPHOLOGY COMMENT NORMAL; RBC MORPHOLOGY COMMENT NORMAL
[2022-08-09] MEDS ORDERED: IOPAMIDOL 370 MG/ML 100 ML INFUS..BTL INJ ONE (13:58)
[2022-08-09] MEDS: NOREPINEPHRINE 8 MG/D5W 250 ML 250 ML IV SCH (16:15)
[2022-08-09] MEDS ORDERED: TRAMADOL HCL 50 MG TAB PO PRN (17:00)
[2022-08-09] MEDS: CIPROFLOXACIN-DEXAMETHASONE (OTIC) 7.5 ML BOTTLE OT SCH (20:28)
[2022-08-09] MEDS: CEFEPIME 2 GM in SODIUM CHLORIDE 0.9% 100 ML IV SCH (20:28)
[2022-08-09] MEDS ORDERED: NEOMYCIN/POLYMYX/HYDROC (OTIC) 10 ML BTL LEFT EAR SCH (21:00)
[2022-08-09] MEDS: METRONIDAZOLE 500MG/NS 100ML 100 ML IV SCH (21:59)
[2022-08-10] VITALS (29 sets, daily range): BP systolic 93–121; BP diastolic 46–71
[2022-08-10] MEDS: HYDROXYZINE HCL 10 MG TAB PO SCH ×5 (00:25→23:44)
[2022-08-10] MEDS: VANCOMYCIN 250MG/5ML ORAL SOLN PO SCH ×3 (00:25→11:36)
[2022-08-10] MEDS: CEFEPIME 2 GM in SODIUM CHLORIDE 0.9% 100 ML IV SCH ×3 (04:35→20:49)
[2022-08-10] MEDS: DIPHENOXYLATE/ATROPINE TAB PO PRN (04:35)
[2022-08-10] MEDS: METRONIDAZOLE 500MG/NS 100ML 100 ML IV SCH ×3 (05:27→20:50)
[2022-08-10] MEDS: SODIUM BICARBONATE 8.4% 50 ML in SODIUM CHLORIDE 0.45% 1,000 ML IV SCH ×3 (05:34→22:14)
[2022-08-10] MEDS: UBIQUINOL PO SCH ×4 (07:30→21:00)
[2022-08-10 07:57] LABS: ANION GAP 11.5 mmol/L (8-16); CALCIUM 7.3 mg/dL (8.4-10.2); CREATININE, SERUM 0.8 mg/dL (0.72-1.25); MAGNESIUM 1.7 MG/DL (1.3-2.1); POTASSIUM 3.5 mmol/L (3.5-5.1)
[2022-08-10] MEDS: LACTOBACILLUS ACIDOPHILUS CAPSULE PO SCH ×2 (08:06→16:25)
[2022-08-10] MEDS: ALLOPURINOL 300 MG TAB PO SCH ×2 (08:07→16:25)
[2022-08-10 08:08] LABS: EOSINOPHILS # (AUTO) 0.1 (0.0-0.4); EOSINOPHILS % 6.5 % (0.0-6.0); HEMATOCRIT 33.1 % (38.2-49.6); LYMPHOCYTES # (AUTO) 0.2 (1.0-3.2); LYMPHOCYTES % 7.5 % (18.0-39.1); MEAN CORPUSCULAR HEMOGLOBIN 27.1 pg (28-32); MEAN CORPUSCULAR HGB CONC 30.2 g/dL (31-35); MONOCYTES # (AUTO) 0.2 (0.2-0.8); NEUTROPHILS # (AUTO) 1.2 (2.1-6.9); NEUTROPHILS % 60.5 % (38.7-80.0); PLATELET COUNT 160 x10e3/uL (140-360); RED BLOOD COUNT 3.69 x10e6/uL (4.3-5.7); RED CELL DISTRIBUTION WIDTH 13.9 % (11.7-14.4)
[2022-08-10] MEDS: ACETAMINOPHEN 325 MG TAB PO SCH (08:11)
[2022-08-10 08:12] LABS: MEAN CORPUSCULAR VOLUME 89.7 fL (81-99)
[2022-08-10] MEDS: OMEGA 3 FISH OIL PO SCH ×2 (08:12→16:28)
[2022-08-10] MEDS: FOLIC ACID 400 MCG PO SCH (08:12)
[2022-08-10] MEDS: CIPROFLOXACIN-DEXAMETHASONE (OTIC) 7.5 ML BOTTLE OT SCH ×2 (08:12→20:50)
[2022-08-10] MEDS: DIPHENOXYLATE/ATROPINE TAB PO SCH ×3 (09:37→20:49)
[2022-08-10 10:41] LABS: BAND NEUTROPHILS % (MANUAL) 2 %; EOSINOPHILS % (MANUAL) 4 % (0-7); LYMPHOCYTES % (MANUAL) 9 % (19-48); MONOCYTES % (MANUAL) 11 % (3.4-9.0); NEUTROPHILS % (MANUAL) 73 % (40-74)
[2022-08-10 10:42] LABS: PLATELET ESTIMATE ADEQUATE; PLATELET MORPHOLOGY COMMENT NORMAL; RBC MORPHOLOGY COMMENT NORMAL; TOXIC GRANULATION SLIGHT
[2022-08-10] MEDS ORDERED: POTASSIUM CHLORIDE 20MEQ/100ML 200 ML IV ONE (15:30)
[2022-08-10] MEDS: NOREPINEPHRINE 8 MG/D5W 250 ML 250 ML IV SCH (16:15)
[2022-08-11] VITALS (21 sets, daily range): BP systolic 87–136; BP diastolic 47–71
[2022-08-11 00:49] LABS: WBC,FECAL (FECAL LACTOFERRIN) POSITIVE (NEGATIVE)
[2022-08-11] MEDS ORDERED: DICYCLOMINE HCL 20 MG TAB PO ONE (02:00)
[2022-08-11] MEDS: CHOLESTYRAMINE 4 GM PACKET PO SCH ×3 (03:57→17:52)
[2022-08-11] MEDS: CEFEPIME 2 GM in SODIUM CHLORIDE 0.9% 100 ML IV SCH ×2 (05:13→12:07)
[2022-08-11] MEDS: METRONIDAZOLE 500MG/NS 100ML 100 ML IV SCH ×2 (05:13→13:20)
[2022-08-11] MEDS: HYDROXYZINE HCL 10 MG TAB PO SCH ×3 (05:29→17:55)
[2022-08-11] MEDS: SODIUM BICARBONATE 8.4% 50 ML in SODIUM CHLORIDE 0.45% 1,000 ML IV SCH ×2 (06:30→14:40)
[2022-08-11 07:19] LABS: BASOPHILS % 0.8 % (0.0-1.0); EOSINOPHILS # (AUTO) 0.3 (0.0-0.4); EOSINOPHILS % 10.3 % (0.0-6.0); HEMOGLOBIN 9.6 g/dL (14.0-18.0); LYMPHOCYTES # (AUTO) 0.2 (1.0-3.2); MEAN CORPUSCULAR HEMOGLOBIN 27.5 pg (28-32); MEAN CORPUSCULAR VOLUME 91.7 fL (81-99); MONOCYTES # (AUTO) 0.3 (0.2-0.8); MONOCYTES % 11.1 % (4.4-11.3); NEUTROPHILS # (AUTO) 1.4 (2.1-6.9); NEUTROPHILS % 55.1 % (38.7-80.0); PLATELET COUNT 145 x10e3/uL (140-360); RED BLOOD COUNT 3.49 x10e6/uL (4.3-5.7)
[2022-08-11] MEDS: UBIQUINOL PO SCH ×4 (07:30→20:52)
[2022-08-11 07:52] LABS: ALBUMIN 1.9 g/dL (3.5-5.0); ANION GAP 11.9 mmol/L (8-16); CALCIUM 7.2 mg/dL (8.4-10.2); CREATININE, SERUM 0.77 mg/dL (0.72-1.25)
[2022-08-11 07:55] LABS: POTASSIUM 2.9 mmol/L (3.5-5.1)
[2022-08-11] MEDS: DIPHENOXYLATE/ATROPINE TAB PO SCH ×4 (08:06→20:51)
[2022-08-11] MEDS: LACTOBACILLUS ACIDOPHILUS CAPSULE PO SCH ×2 (08:07→17:52)
[2022-08-11] MEDS: DICYCLOMINE HCL 20 MG TAB PO SCH ×4 (08:07→20:51)
[2022-08-11] MEDS: ALLOPURINOL 300 MG TAB PO SCH ×2 (08:07→17:52)
[2022-08-11] MEDS: CIPROFLOXACIN-DEXAMETHASONE (OTIC) 7.5 ML BOTTLE OT SCH ×2 (08:07→20:59)
[2022-08-11] MEDS: FOLIC ACID 400 MCG PO SCH (08:08)
[2022-08-11] MEDS: OMEGA 3 FISH OIL PO SCH ×2 (08:08→16:33)
[2022-08-11 08:56] LABS: BAND NEUTROPHILS % (MANUAL) 1 %; EOSINOPHILS % (MANUAL) 1 % (0-7); LYMPHOCYTES % (MANUAL) 6 % (19-48); MONOCYTES % (MANUAL) 20 % (3.4-9.0); NEUTROPHILS % (MANUAL) 72 % (40-74); PLATELET ESTIMATE SLIGHTLY DECREASED; PLATELET MORPHOLOGY COMMENT NORMAL; RBC MORPHOLOGY COMMENT NORMAL
[2022-08-11] MEDS ORDERED: CHOLESTYRAMINE 4 GM PACKET PO SCH (09:00)
[2022-08-11] MEDS: POTASSIUM CHLORIDE 20MEQ/100ML 100 ML IV SCH ×4 (09:37→20:49)
[2022-08-11] MEDS: NOREPINEPHRINE 8 MG/D5W 250 ML 250 ML IV SCH (16:15)
[2022-08-12] VITALS (8 sets, daily range): BP systolic 91–101; BP diastolic 44–68
[2022-08-12] MEDS: METRONIDAZOLE 500MG/NS 100ML 100 ML IV SCH ×4 (00:08→21:09)
[2022-08-12] MEDS: HYDROXYZINE HCL 10 MG TAB PO SCH ×5 (00:08→23:41)
[2022-08-12] MEDS: SODIUM BICARBONATE 8.4% 50 ML in SODIUM CHLORIDE 0.45% 1,000 ML IV SCH ×3 (00:09→12:06)
[2022-08-12] MEDS ORDERED: SODIUM CHLORIDE 0.45% 1,000 ML ONE (03:07)
[2022-08-12] MEDS ORDERED: SODIUM BICARBONATE 8.4% SYRING 50 ML ONE (03:08)
[2022-08-12 06:06] LABS: BASOPHILS % 0.8 % (0.0-1.0); EOSINOPHILS # (AUTO) 0.3 (0.0-0.4); EOSINOPHILS % 11.8 % (0.0-6.0); HEMATOCRIT 34.5 % (38.2-49.6); HEMOGLOBIN 10.5 g/dL (14.0-18.0); LYMPHOCYTES # (AUTO) 0.2 (1.0-3.2); LYMPHOCYTES % 7.2 % (18.0-39.1); MEAN CORPUSCULAR HEMOGLOBIN 27.3 pg (28-32); MEAN CORPUSCULAR HGB CONC 30.4 g/dL (31-35); MEAN CORPUSCULAR VOLUME 89.6 fL (81-99); MONOCYTES # (AUTO) 0.3 (0.2-0.8); MONOCYTES % 11.4 % (4.4-11.3); NEUTROPHILS # (AUTO) 1.4 (2.1-6.9); NEUTROPHILS % 59.5 % (38.7-80.0); PLATELET COUNT 169 x10e3/uL (140-360); RED BLOOD COUNT 3.85 x10e6/uL (4.3-5.7); RED CELL DISTRIBUTION WIDTH 13.7 % (11.7-14.4)
[2022-08-12 06:39] LABS: ALBUMIN 1.9 g/dL (3.5-5.0); ALBUMIN/GLOBULIN RATIO 0.9 (0.8-2.0); ANION GAP 10.5 mmol/L (8-16); CALCIUM 7.5 mg/dL (8.4-10.2); CREATININE, SERUM 0.72 mg/dL (0.72-1.25); POTASSIUM 3.5 mmol/L (3.5-5.1)
[2022-08-12] MEDS: UBIQUINOL PO SCH ×4 (07:30→19:32)
[2022-08-12 08:32] LABS: BAND NEUTROPHILS % (MANUAL) 2 %; EOSINOPHILS % (MANUAL) 5 % (0-7); LYMPHOCYTES % (MANUAL) 8 % (19-48); MONOCYTES % (MANUAL) 22 % (3.4-9.0); NEUTROPHILS % (MANUAL) 63 % (40-74)
[2022-08-12 08:33] LABS: PLATELET ESTIMATE ADEQUATE; PLATELET MORPHOLOGY COMMENT NORMAL; RBC MORPHOLOGY COMMENT NORMAL
[2022-08-12] MEDS: OMEGA 3 FISH OIL PO SCH ×2 (09:00→15:39)
[2022-08-12] MEDS: FOLIC ACID 400 MCG PO SCH (09:00)
[2022-08-12] MEDS: LACTOBACILLUS ACIDOPHILUS CAPSULE PO SCH ×2 (09:20→16:56)
[2022-08-12] MEDS: ALLOPURINOL 300 MG TAB PO SCH ×2 (09:21→16:56)
[2022-08-12] MEDS: CHOLESTYRAMINE 4 GM PACKET PO SCH ×4 (09:21→21:08)
[2022-08-12] MEDS: DIPHENOXYLATE/ATROPINE TAB PO SCH ×4 (09:21→21:08)
[2022-08-12] MEDS: DICYCLOMINE HCL 20 MG TAB PO SCH ×4 (09:21→21:09)
[2022-08-12] MEDS: CIPROFLOXACIN-DEXAMETHASONE (OTIC) 7.5 ML BOTTLE OT SCH ×2 (09:27→21:09)
[2022-08-12] MEDS: SODIUM CHLORIDE 0.9% 1000ML 1,000 ML IV SCH (13:40)
[2022-08-13] VITALS (8 sets, daily range): BP systolic 88–123; BP diastolic 48–68
[2022-08-13 05:06] LABS: BASOPHILS % 0.8 % (0.0-1.0); EOSINOPHILS # (AUTO) 0.2 (0.0-0.4); EOSINOPHILS % 9.3 % (0.0-6.0); LYMPHOCYTES # (AUTO) 0.2 (1.0-3.2); LYMPHOCYTES % 6.8 % (18.0-39.1); MEAN CORPUSCULAR HEMOGLOBIN 27.3 pg (28-32); MEAN CORPUSCULAR HGB CONC 32.3 g/dL (31-35); MEAN CORPUSCULAR VOLUME 84.7 fL (81-99); MONOCYTES # (AUTO) 0.3 (0.2-0.8); MONOCYTES % 11.4 % (4.4-11.3); NEUTROPHILS # (AUTO) 1.4 (2.1-6.9); NEUTROPHILS % 59.9 % (38.7-80.0); PLATELET COUNT 146 x10e3/uL (140-360); RED BLOOD COUNT 3.66 x10e6/uL (4.3-5.7)
[2022-08-13] MEDS: HYDROXYZINE HCL 10 MG TAB PO SCH ×3 (05:18→18:25)
[2022-08-13] MEDS: METRONIDAZOLE 500MG/NS 100ML 100 ML IV SCH ×3 (05:19→21:23)
[2022-08-13] MEDS: SODIUM CHLORIDE 0.9% 1000ML 1,000 ML IV SCH ×2 (05:21→18:41)
[2022-08-13 05:31] LABS: ALBUMIN 1.9 g/dL (3.5-5.0); ANION GAP 10.9 mmol/L (8-16); CALCIUM 7.4 mg/dL (8.4-10.2); CREATININE, SERUM 0.67 mg/dL (0.72-1.25); POTASSIUM 3.9 mmol/L (3.5-5.1)
[2022-08-13] MEDS: UBIQUINOL PO SCH ×4 (07:30→21:00)
[2022-08-13] MEDS ORDERED: FILGRASTIM 300 MCG/ML VIAL SC SCH (08:00)
[2022-08-13] MEDS: CIPROFLOXACIN-DEXAMETHASONE (OTIC) 7.5 ML BOTTLE OT SCH ×2 (09:00→21:24)
[2022-08-13] MEDS: DIPHENOXYLATE/ATROPINE TAB PO SCH ×4 (09:00→21:23)
[2022-08-13] MEDS: FOLIC ACID 400 MCG PO SCH (09:00)
[2022-08-13] MEDS: OMEGA 3 FISH OIL PO SCH ×2 (09:00→17:00)
[2022-08-13] MEDS: FLUDROCORTISONE ACETATE 0.1 MG TAB PO SCH ×2 (10:16→18:25)
[2022-08-13] MEDS: CHOLESTYRAMINE 4 GM PACKET PO SCH ×4 (10:16→21:23)
[2022-08-13] MEDS: DICYCLOMINE HCL 20 MG TAB PO SCH ×4 (10:16→21:00)
[2022-08-13] MEDS: LACTOBACILLUS ACIDOPHILUS CAPSULE PO SCH (10:17)
[2022-08-13 11:05] LABS: BAND NEUTROPHILS % (MANUAL) 4 %; EOSINOPHILS % (MANUAL) 4 % (0-7); LYMPHOCYTES % (MANUAL) 5 % (19-48); METAMYELOCYTES % (MANUAL) 4 % (0-0); MONOCYTES % (MANUAL) 13 % (3.4-9.0); NEUTROPHILS % (MANUAL) 70 % (40-74)
[2022-08-13 11:06] LABS: PLATELET ESTIMATE ADEQUATE; PLATELET MORPHOLOGY COMMENT NORMAL; RBC MORPHOLOGY COMMENT NORMAL
[2022-08-13 11:07] LABS: POIKILOCYTOSIS SLIGHT
[2022-08-14] MEDS ORDERED: ONDANSETRON HCL INJ 2MG/ML 2ML 2 MG/ML VIAL IV PRN
[2022-08-14 00:33] VITALS: BP 92/58
[2022-08-14 04:43] VITALS: BP 99/66
[2022-08-14 06:10] LABS: BASOPHILS % 0.4 % (0.0-1.0); EOSINOPHILS # (AUTO) 0.1 (0.0-0.4); EOSINOPHILS % 2.7 % (0.0-6.0); HEMATOCRIT 34.4 % (38.2-49.6); HEMOGLOBIN 10.3 g/dL (14.0-18.0); LYMPHOCYTES # (AUTO) 0.3 (1.0-3.2); LYMPHOCYTES % 9.5 % (18.0-39.1); MEAN CORPUSCULAR HEMOGLOBIN 26.8 pg (28-32); MEAN CORPUSCULAR HGB CONC 29.9 g/dL (31-35); MEAN CORPUSCULAR VOLUME 89.6 fL (81-99); MONOCYTES # (AUTO) 0.4 (0.2-0.8); MONOCYTES % 15.3 % (4.4-11.3); NEUTROPHILS # (AUTO) 1.4 (2.1-6.9); PLATELET COUNT 166 x10e3/uL (140-360); RED BLOOD COUNT 3.84 x10e6/uL (4.3-5.7); RED CELL DISTRIBUTION WIDTH 13.9 % (11.7-14.4)
[2022-08-14] MEDS: HYDROXYZINE HCL 10 MG TAB PO SCH ×4 (06:24→17:43)
[2022-08-14] MEDS: SODIUM CHLORIDE 0.9% 1000ML 1,000 ML IV SCH ×2 (06:24→20:00)
[2022-08-14] MEDS: METRONIDAZOLE 500MG/NS 100ML 100 ML IV SCH ×3 (06:24→21:43)
[2022-08-14] MEDS: FILGRASTIM-AAFI 480 MCG/0.8 ML SYRINGE SQ SCH (06:25)
[2022-08-14 06:40] LABS: ALBUMIN 1.8 g/dL (3.5-5.0); ALBUMIN/GLOBULIN RATIO 0.9 (0.8-2.0); ANION GAP 9.5 mmol/L (8-16); CALCIUM 7.4 mg/dL (8.4-10.2); CREATININE, SERUM 0.75 mg/dL (0.72-1.25); POTASSIUM 3.5 mmol/L (3.5-5.1)
[2022-08-14] MEDS: ONDANSETRON HCL INJ 2MG/ML 2ML 2 MG/ML VIAL IV SCH ×5 (07:30→21:00)
[2022-08-14] MEDS: UBIQUINOL PO SCH ×4 (07:30→21:00)
[2022-08-14 07:40] LABS: EOSINOPHILS % (MANUAL) 3 % (0-7); LYMPHOCYTES % (MANUAL) 10 % (19-48); MONOCYTES % (MANUAL) 14 % (3.4-9.0); NEUTROPHILS % (MANUAL) 66 % (40-74)
[2022-08-14 07:41] LABS: BAND NEUTROPHILS % (MANUAL) 4 %; METAMYELOCYTES % (MANUAL) 3 % (0-0); PLATELET ESTIMATE ADEQUATE; PLATELET MORPHOLOGY COMMENT NORMAL; RBC MORPHOLOGY COMMENT NORMAL
[2022-08-14] MEDS: FOLIC ACID 400 MCG PO SCH (09:00)
[2022-08-14] MEDS: OMEGA 3 FISH OIL PO SCH ×2 (09:00→17:00)
[2022-08-14] MEDS: FLUDROCORTISONE ACETATE 0.1 MG TAB PO SCH ×2 (09:16→17:43)
[2022-08-14] MEDS: CHOLESTYRAMINE 4 GM PACKET PO SCH ×4 (09:17→21:43)
[2022-08-14] MEDS: CIPROFLOXACIN-DEXAMETHASONE (OTIC) 7.5 ML BOTTLE OT SCH ×2 (09:17→21:49)
[2022-08-14] MEDS: DICYCLOMINE HCL 20 MG TAB PO SCH ×4 (09:17→21:42)
[2022-08-14] MEDS: DIPHENOXYLATE/ATROPINE TAB PO SCH ×4 (09:17→21:43)
[2022-08-14] MEDS ORDERED: POTASSIUM CHLORIDE 10MEQ EA PO ONE (11:15)
[2022-08-14] MEDS ORDERED: ALBUMIN 25% 12.5GM 0.25 GM/ML BTL IV ONE (11:30)
[2022-08-14 12:33] VITALS: BP 94/53
[2022-08-14 16:00] VITALS: BP 87/42
[2022-08-14 20:35] VITALS: BP 92/53
[2022-08-14 21:00] VITALS: BP 92/53
[2022-08-15] VITALS (7 sets, daily range): BP systolic 81–107; BP diastolic 42–53
[2022-08-15] MEDS ORDERED: BISACODYL 5 MG TAB EC PO ONE ×4 (00:15→23:15)
[2022-08-15] MEDS ORDERED: PEG (High)/E-LYTE SOLN 4,000 ML BTL PO ONE (05:00)
[2022-08-15] MEDS: METRONIDAZOLE 500MG/NS 100ML 100 ML IV SCH ×3 (05:21→21:45)
[2022-08-15] MEDS: FILGRASTIM-AAFI 480 MCG/0.8 ML SYRINGE SQ SCH (05:21)
[2022-08-15] MEDS: HYDROXYZINE HCL 10 MG TAB PO SCH ×4 (05:21→17:28)
[2022-08-15 05:49] LABS: BASOPHILS # (AUTO) 0.1 (0.0-0.1); BASOPHILS % 0.9 % (0.0-1.0); EOSINOPHILS # (AUTO) 0.2 (0.0-0.4); EOSINOPHILS % 3.6 % (0.0-6.0); HEMOGLOBIN 8.8 g/dL (14.0-18.0); LYMPHOCYTES # (AUTO) 0.2 (1.0-3.2); LYMPHOCYTES % 4.2 % (18.0-39.1); MEAN CORPUSCULAR HEMOGLOBIN 27.2 pg (28-32); MEAN CORPUSCULAR HGB CONC 31.4 g/dL (31-35); MEAN CORPUSCULAR VOLUME 86.4 fL (81-99); MONOCYTES # (AUTO) 0.4 (0.2-0.8); MONOCYTES % 6.8 % (4.4-11.3); NEUTROPHILS # (AUTO) 4.3 (2.1-6.9); NEUTROPHILS % 75.1 % (38.7-80.0); PLATELET COUNT 133 x10e3/uL (140-360); RED BLOOD COUNT 3.24 x10e6/uL (4.3-5.7); RED CELL DISTRIBUTION WIDTH 14.4 % (11.7-14.4)
[2022-08-15 06:03] LABS: ANION GAP 12.5 mmol/L (8-16); CALCIUM 7.6 mg/dL (8.4-10.2); CREATININE, SERUM 0.72 mg/dL (0.72-1.25); POTASSIUM 3.5 mmol/L (3.5-5.1)
[2022-08-15 06:04] LABS: ALBUMIN/GLOBULIN RATIO 1.1 (0.8-2.0)
[2022-08-15 07:26] LABS: BAND NEUTROPHILS % (MANUAL) 6 %; EOSINOPHILS % (MANUAL) 3 % (0-7); LYMPHOCYTES % (MANUAL) 2 % (19-48); METAMYELOCYTES % (MANUAL) 1 % (0-0); MONOCYTES % (MANUAL) 4 % (3.4-9.0); NEUTROPHILS % (MANUAL) 84 % (40-74)
[2022-08-15 07:27] LABS: PLATELET ESTIMATE SLIGHTLY DECREASED; PLATELET MORPHOLOGY COMMENT NORMAL; RBC MORPHOLOGY COMMENT NORMAL
[2022-08-15] MEDS: UBIQUINOL PO SCH ×4 (07:30→21:00)
[2022-08-15] MEDS: SODIUM CHLORIDE 0.9% 1000ML 1,000 ML IV SCH ×2 (07:40→23:37)
[2022-08-15] MEDS: ONDANSETRON HCL INJ 2MG/ML 2ML 2 MG/ML VIAL IV SCH ×4 (07:53→21:46)
[2022-08-15] MEDS: CIPROFLOXACIN-DEXAMETHASONE (OTIC) 7.5 ML BOTTLE OT SCH ×3 (09:00→21:00)
[2022-08-15] MEDS: FOLIC ACID 400 MCG PO SCH (09:00)
[2022-08-15] MEDS: OMEGA 3 FISH OIL PO SCH ×2 (09:00→16:59)
[2022-08-15] MEDS: CHOLESTYRAMINE 4 GM PACKET PO SCH (09:19)
[2022-08-15] MEDS: FLUDROCORTISONE ACETATE 0.1 MG TAB PO SCH ×2 (09:19→17:28)
[2022-08-15] MEDS: DICYCLOMINE HCL 20 MG TAB PO SCH ×4 (09:20→21:45)
[2022-08-15] MEDS: DIPHENOXYLATE/ATROPINE TAB PO SCH ×4 (09:21→21:00)
[2022-08-15] MEDS ORDERED: POTASSIUM CHLORIDE 10MEQ EA PO ONE (11:45)
[2022-08-16] MEDS: HYDROXYZINE HCL 10 MG TAB PO SCH ×5 (00:30→22:30)
[2022-08-16] MEDS ORDERED: BISACODYL 5 MG TAB EC PO ONE (00:30)
[2022-08-16 04:00] VITALS: BP 101/70
[2022-08-16 05:28] LABS: BASOPHILS % 0.3 % (0.0-1.0); EOSINOPHILS # (AUTO) 0.1 (0.0-0.4); EOSINOPHILS % 1.9 % (0.0-6.0); HEMATOCRIT 33.4 % (38.2-49.6); HEMOGLOBIN 9.9 g/dL (14.0-18.0); LYMPHOCYTES # (AUTO) 0.3 (1.0-3.2); LYMPHOCYTES % 3.5 % (18.0-39.1); MEAN CORPUSCULAR HEMOGLOBIN 27.2 pg (28-32); MEAN CORPUSCULAR HGB CONC 29.6 g/dL (31-35); MEAN CORPUSCULAR VOLUME 91.8 fL (81-99); MONOCYTES # (AUTO) 0.4 (0.2-0.8); MONOCYTES % 4.8 % (4.4-11.3); NEUTROPHILS # (AUTO) 6.1 (2.1-6.9); NEUTROPHILS % 81.5 % (38.7-80.0); PLATELET COUNT 150 x10e3/uL (140-360); RED BLOOD COUNT 3.64 x10e6/uL (4.3-5.7); RED CELL DISTRIBUTION WIDTH 14.5 % (11.7-14.4)
[2022-08-16 06:03] LABS: ALBUMIN 2.2 g/dL (3.5-5.0); ALBUMIN/GLOBULIN RATIO 1.2 (0.8-2.0); ANION GAP 12.5 mmol/L (8-16); CALCIUM 7.7 mg/dL (8.4-10.2); CREATININE, SERUM 0.76 mg/dL (0.72-1.25); POTASSIUM 3.5 mmol/L (3.5-5.1)
[2022-08-16] MEDS: METRONIDAZOLE 500MG/NS 100ML 100 ML IV SCH ×3 (06:43→22:30)
[2022-08-16] MEDS: FILGRASTIM-AAFI 480 MCG/0.8 ML SYRINGE SQ SCH (06:43)
[2022-08-16] MEDS: UBIQUINOL PO SCH ×4 (06:44→21:00)
[2022-08-16 08:11] LABS: BAND NEUTROPHILS % (MANUAL) 2 %; HYPOCHROMASIA SLIGHT; MONOCYTES % (MANUAL) 6 % (3.4-9.0); NEUTROPHILS % (MANUAL) 92 % (40-74); PLATELET ESTIMATE ADEQUATE; PLATELET MORPHOLOGY COMMENT NORMAL; RBC MORPHOLOGY COMMENT NORMAL
[2022-08-16 08:15] VITALS: BP 104/52
[2022-08-16 08:48] VITALS: BP 104/52
[2022-08-16] MEDS: CIPROFLOXACIN-DEXAMETHASONE (OTIC) 7.5 ML BOTTLE OT SCH (09:00)
[2022-08-16] MEDS: DICYCLOMINE HCL 20 MG TAB PO SCH ×4 (09:00→22:30)
[2022-08-16] MEDS: DIPHENOXYLATE/ATROPINE TAB PO SCH ×4 (09:00→22:30)
[2022-08-16] MEDS: OMEGA 3 FISH OIL PO SCH ×2 (09:00→16:20)
[2022-08-16] MEDS: FLUDROCORTISONE ACETATE 0.1 MG TAB PO SCH ×2 (09:00→16:20)
[2022-08-16] MEDS: FOLIC ACID 400 MCG PO SCH (09:00)
[2022-08-16] MEDS ORDERED: POTASSIUM CHLORIDE 10MEQ EA PO ONE (10:30)
[2022-08-16 11:54] VITALS: BP 73/41
[2022-08-16] MEDS ORDERED: LIDOCAINE HCL 2% LOCAL INJ 5 ML SDV VIAL INJ ONE (13:26)
[2022-08-16] MEDS ORDERED: PROPOFOL IV EMULSION 10 MG/ML 20 ML VIAL ONE (13:26)
[2022-08-16 15:36] LABS: WBC,FECAL (FECAL LACTOFERRIN) POSITIVE (NEGATIVE)
[2022-08-16] MEDS: SUCRALFATE 1 GM TAB PO SCH ×2 (16:20→22:30)
[2022-08-16] MEDS: METHYLPREDNISOLONE SOD SUCC 40 MG/ML VIAL 1ML IV SCH ×2 (17:30→22:31)
[2022-08-16 20:00] VITALS: BP 103/55
[2022-08-16] MEDS: SODIUM CHLORIDE 0.9% 1000ML 1,000 ML IV SCH (22:29)
[2022-08-17] VITALS (8 sets, daily range): BP systolic 98–121; BP diastolic 51–59
[2022-08-17 05:35] LABS: BASOPHILS # (AUTO) 0.1 (0.0-0.1); BASOPHILS % 0.8 % (0.0-1.0); EOSINOPHILS % 0.1 % (0.0-6.0); HEMATOCRIT 30.9 % (38.2-49.6); HEMOGLOBIN 9.7 g/dL (14.0-18.0); LYMPHOCYTES # (AUTO) 0.2 (1.0-3.2); LYMPHOCYTES % 2.1 % (18.0-39.1); MEAN CORPUSCULAR HEMOGLOBIN 27.2 pg (28-32); MEAN CORPUSCULAR HGB CONC 31.4 g/dL (31-35); MEAN CORPUSCULAR VOLUME 86.8 fL (81-99); MONOCYTES # (AUTO) 0.3 (0.2-0.8); MONOCYTES % 3.5 % (4.4-11.3); NEUTROPHILS % 82.7 % (38.7-80.0); PLATELET COUNT 156 x10e3/uL (140-360); RED BLOOD COUNT 3.56 x10e6/uL (4.3-5.7); RED CELL DISTRIBUTION WIDTH 14.8 % (11.7-14.4)
[2022-08-17] MEDS: SODIUM CHLORIDE 0.9% 1000ML 1,000 ML IV SCH ×2 (05:46→13:11)
[2022-08-17] MEDS: METHYLPREDNISOLONE SOD SUCC 40 MG/ML VIAL 1ML IV SCH ×3 (05:46→17:20)
[2022-08-17] MEDS: METRONIDAZOLE 500MG/NS 100ML 100 ML IV SCH ×3 (05:46→21:34)
[2022-08-17] MEDS: FILGRASTIM-AAFI 480 MCG/0.8 ML SYRINGE SQ SCH (05:47)
[2022-08-17] MEDS: HYDROXYZINE HCL 10 MG TAB PO SCH ×3 (05:47→17:21)
[2022-08-17 06:06] LABS: ALBUMIN 2.2 g/dL (3.5-5.0); ALBUMIN/GLOBULIN RATIO 1.4 (0.8-2.0); ANION GAP 12.8 mmol/L (8-16); CALCIUM 7.3 mg/dL (8.4-10.2); CREATININE, SERUM 0.8 mg/dL (0.72-1.25); POTASSIUM 3.8 mmol/L (3.5-5.1)
[2022-08-17 06:13] LABS: ENDOMYSIAL ANTIBODIES, IGA Negative (Negative)
[2022-08-17 07:24] LABS: BAND NEUTROPHILS % (MANUAL) 3 %; LYMPHOCYTES % (MANUAL) 1 % (19-48); METAMYELOCYTES % (MANUAL) 2 % (0-0); MONOCYTES % (MANUAL) 4 % (3.4-9.0); MYELOCYTES % (MANUAL) 1 % (0-0); NEUTROPHILS % (MANUAL) 89 % (40-74)
[2022-08-17 07:30] LABS: PLATELET ESTIMATE ADEQUATE; PLATELET MORPHOLOGY COMMENT NORMAL; RBC MORPHOLOGY COMMENT NORMAL
[2022-08-17] MEDS: UBIQUINOL PO SCH ×4 (07:30→21:00)
[2022-08-17] MEDS: FLUDROCORTISONE ACETATE 0.1 MG TAB PO SCH ×2 (08:13→17:21)
[2022-08-17] MEDS: DIPHENOXYLATE/ATROPINE TAB PO SCH (08:13)
[2022-08-17] MEDS: SUCRALFATE 1 GM TAB PO SCH ×4 (08:13→21:33)
[2022-08-17] MEDS: DICYCLOMINE HCL 20 MG TAB PO SCH ×4 (08:13→21:34)
[2022-08-17] MEDS: FOLIC ACID 400 MCG PO SCH (08:14)
[2022-08-17] MEDS: OMEGA 3 FISH OIL PO SCH ×2 (08:14→16:05)
[2022-08-17] MEDS: CHOLESTYRAMINE 4 GM PACKET PO SCH ×4 (10:06→21:34)
[2022-08-18] VITALS (7 sets, daily range): BP systolic 103–118; BP diastolic 54–79
[2022-08-18] MEDS: HYDROXYZINE HCL 10 MG TAB PO SCH ×4 (00:35→17:27)
[2022-08-18] MEDS: METHYLPREDNISOLONE SOD SUCC 40 MG/ML VIAL 1ML IV SCH ×4 (00:35→17:27)
[2022-08-18] MEDS: SODIUM CHLORIDE 0.9% 1000ML 1,000 ML IV SCH ×2 (00:35→20:38)
[2022-08-18] MEDS: METRONIDAZOLE 500MG/NS 100ML 100 ML IV SCH (05:35)
[2022-08-18 05:52] LABS: BASOPHILS # (AUTO) 0.1 (0.0-0.1); BASOPHILS % 1.1 % (0.0-1.0); HEMATOCRIT 31.7 % (38.2-49.6); HEMOGLOBIN 9.8 g/dL (14.0-18.0); LYMPHOCYTES # (AUTO) 0.2 (1.0-3.2); LYMPHOCYTES % 2.5 % (18.0-39.1); MEAN CORPUSCULAR HEMOGLOBIN 27.1 pg (28-32); MEAN CORPUSCULAR HGB CONC 30.9 g/dL (31-35); MEAN CORPUSCULAR VOLUME 87.8 fL (81-99); MONOCYTES # (AUTO) 0.5 (0.2-0.8); MONOCYTES % 6.7 % (4.4-11.3); NEUTROPHILS # (AUTO) 5.4 (2.1-6.9); NEUTROPHILS % 68.3 % (38.7-80.0); PLATELET COUNT 155 x10e3/uL (140-360); RED BLOOD COUNT 3.61 x10e6/uL (4.3-5.7); RED CELL DISTRIBUTION WIDTH 14.8 % (11.7-14.4)
[2022-08-18 06:20] LABS: ALBUMIN 2.2 g/dL (3.5-5.0); ALBUMIN/GLOBULIN RATIO 1.4 (0.8-2.0); ANION GAP 13.1 mmol/L (8-16); CALCIUM 7.7 mg/dL (8.4-10.2); CREATININE, SERUM 0.79 mg/dL (0.72-1.25); POTASSIUM 4.1 mmol/L (3.5-5.1)
[2022-08-18] MEDS: UBIQUINOL PO SCH ×4 (07:30→20:38)
[2022-08-18 07:33] LABS: BAND NEUTROPHILS % (MANUAL) 3 %; LYMPHOCYTES % (MANUAL) 1 % (19-48); METAMYELOCYTES % (MANUAL) 1 % (0-0); MONOCYTES % (MANUAL) 11 % (3.4-9.0); MYELOCYTES % (MANUAL) 2 % (0-0); NEUTROPHILS % (MANUAL) 82 % (40-74)
[2022-08-18 07:34] LABS: HYPOCHROMASIA SLIGHT; PLATELET ESTIMATE ADEQUATE; PLATELET MORPHOLOGY COMMENT NORMAL; RBC MORPHOLOGY COMMENT NORMAL
[2022-08-18] MEDS: SUCRALFATE 1 GM TAB PO SCH ×4 (08:32→20:27)
[2022-08-18] MEDS: DICYCLOMINE HCL 20 MG TAB PO SCH ×4 (08:32→20:27)
[2022-08-18] MEDS: CHOLESTYRAMINE 4 GM PACKET PO SCH ×5 (08:32→20:38)
[2022-08-18] MEDS: OMEGA 3 FISH OIL PO SCH ×2 (08:32→17:00)
[2022-08-18] MEDS: FOLIC ACID 400 MCG PO SCH (08:32)
[2022-08-18] MEDS: FLUDROCORTISONE ACETATE 0.1 MG TAB PO SCH ×2 (08:32→17:27)
[2022-08-18] MEDS: DIPHENOXYLATE/ATROPINE TAB PO SCH ×4 (10:06→20:27)
[2022-08-18] MEDS ORDERED: ONDANSETRON HCL 4 MG ORAL DISINTEGRATING TAB PO PRN (13:45)
[2022-08-19] VITALS: BP 121/63
[2022-08-19] MEDS: METHYLPREDNISOLONE SOD SUCC 40 MG/ML VIAL 1ML IV SCH ×2 (00:41→05:45)
[2022-08-19] MEDS: HYDROXYZINE HCL 10 MG TAB PO SCH ×2 (00:41→05:45)
[2022-08-19 04:00] VITALS: BP 117/66
[2022-08-19 05:09] LABS: BASOPHILS % 0.2 % (0.0-1.0); HEMATOCRIT 33.9 % (38.2-49.6); LYMPHOCYTES # (AUTO) 0.2 (1.0-3.2); LYMPHOCYTES % 3.7 % (18.0-39.1); MEAN CORPUSCULAR HEMOGLOBIN 27.2 pg (28-32); MEAN CORPUSCULAR HGB CONC 29.5 g/dL (31-35); MEAN CORPUSCULAR VOLUME 92.1 fL (81-99); MONOCYTES # (AUTO) 0.3 (0.2-0.8); MONOCYTES % 8.4 % (4.4-11.3); NEUTROPHILS % 73.7 % (38.7-80.0); PLATELET COUNT 140 x10e3/uL (140-360); RED BLOOD COUNT 3.68 x10e6/uL (4.3-5.7); RED CELL DISTRIBUTION WIDTH 14.6 % (11.7-14.4)
[2022-08-19 05:34] LABS: ALBUMIN 2.2 g/dL (3.5-5.0); ALBUMIN/GLOBULIN RATIO 1.4 (0.8-2.0); ANION GAP 12.1 mmol/L (8-16); CALCIUM 7.6 mg/dL (8.4-10.2); CREATININE, SERUM 0.78 mg/dL (0.72-1.25); POTASSIUM 4.1 mmol/L (3.5-5.1)
[2022-08-19 06:08] LABS: BAND NEUTROPHILS % (MANUAL) 1 %; LYMPHOCYTES % (MANUAL) 4 % (19-48); MONOCYTES % (MANUAL) 12 % (3.4-9.0); NEUTROPHILS % (MANUAL) 79 % (40-74)
[2022-08-19 06:09] LABS: ANISOCYTOSIS SLIGHT; HYPOCHROMASIA SLIGHT; OVALOCYTES FEW; PLATELET ESTIMATE ADEQUATE; PLATELET MORPHOLOGY COMMENT NORMAL; RBC MORPHOLOGY COMMENT ABNORMAL
[2022-08-19] MEDS: SODIUM CHLORIDE 0.9% 1000ML 1,000 ML IV SCH (06:29)
[2022-08-19] MEDS: UBIQUINOL PO SCH (07:30)
[2022-08-19 08:16] VITALS: BP 116/61
[2022-08-19] MEDS: OMEGA 3 FISH OIL PO SCH (08:21)
[2022-08-19] MEDS: FLUDROCORTISONE ACETATE 0.1 MG TAB PO SCH (08:21)
[2022-08-19] MEDS: FOLIC ACID 400 MCG PO SCH (08:21)
[2022-08-19] MEDS: DIPHENOXYLATE/ATROPINE TAB PO SCH (08:22)
[2022-08-19] MEDS: DICYCLOMINE HCL 20 MG TAB PO SCH (08:22)
[2022-08-19] MEDS: SUCRALFATE 1 GM TAB PO SCH (08:22)
[2022-08-19] MEDS: CHOLESTYRAMINE 4 GM PACKET PO SCH (08:26)
[2022-08-19 08:30] VITALS: BP 116/61
[2022-08-19] MEDS ORDERED: HEPARIN 500 UNITS/5ML MDV INJ ONE (12:00)
== END 2022-08-19 11:50 | disposition home or self-care (01) | DRG 871 ==
LOC: ER 09:57 → ERHOLD 13:43 → ICU 15:08 → MED/SURG2 08-11 15:50
PROVIDERS: ADMIT Internal Medicine; ATTEND Internal Medicine
PROC: 3E03329 Introduction of Other Anti-infective into Peripheral Vein, Percutaneous Approach (ICD-10-PCS; 2022-08-08)
PROC: 3E03329 Introduction of Other Anti-infective into Peripheral Vein, Percutaneous Approach (ICD-10-PCS; 2022-08-08)
PROC: 3E03329 Introduction of Other Anti-infective into Peripheral Vein, Percutaneous Approach (ICD-10-PCS; 2022-08-09)
PROC: 3E03329 Introduction of Other Anti-infective into Peripheral Vein, Percutaneous Approach (ICD-10-PCS; 2022-08-09)
PROC: 3E03329 Introduction of Other Anti-infective into Peripheral Vein, Percutaneous Approach (ICD-10-PCS; 2022-08-09)
PROC: 3E03329 Introduction of Other Anti-infective into Peripheral Vein, Percutaneous Approach (ICD-10-PCS; 2022-08-10)
PROC: 3E03329 Introduction of Other Anti-infective into Peripheral Vein, Percutaneous Approach (ICD-10-PCS; 2022-08-10)
PROC: 3E03329 Introduction of Other Anti-infective into Peripheral Vein, Percutaneous Approach (ICD-10-PCS; 2022-08-11)
PROC: 0DDB8ZX Extraction of Ileum, Via Natural or Artificial Opening Endoscopic, Diagnostic (ICD-10-PCS; 2022-08-16)
PROC: 0DDN8ZX Extraction of Sigmoid Colon, Via Natural or Artificial Opening Endoscopic, Diagnostic (ICD-10-PCS; 2022-08-16)
PROC: 0DD98ZX Extraction of Duodenum, Via Natural or Artificial Opening Endoscopic, Diagnostic (ICD-10-PCS; principal; 2022-08-16 13:51)
PROC: 0DD68ZX Extraction of Stomach, Via Natural or Artificial Opening Endoscopic, Diagnostic (ICD-10-PCS; 2022-08-16 13:51)
DX: A41.9 Sepsis, unspecified organism (principal); E43 Unspecified severe protein-calorie malnutrition; J96.90 Respiratory failure, unspecified, unspecified whether with hypoxia or hypercapnia; K25.4 Chronic or unspecified gastric ulcer with hemorrhage; C91.10 Chronic lymphocytic leukemia of B-cell type not having achieved remission; K51.90 Ulcerative colitis, unspecified, without complications; N17.9 Acute kidney failure, unspecified; E87.1 Hypo-osmolality and hyponatremia; D61.82 Myelophthisis; N39.0 Urinary tract infection, site not specified; D83.9 Common variable immunodeficiency, unspecified; E86.1 Hypovolemia; E87.6 Hypokalemia; E11.9 Type 2 diabetes mellitus without complications; R65.20 Severe sepsis without septic shock; K29.70 Gastritis, unspecified, without bleeding; K44.9 Diaphragmatic hernia without obstruction or gangrene; N20.0 Calculus of kidney; K20.90 Esophagitis, unspecified without bleeding; I95.9 Hypotension, unspecified; D50.0 Iron deficiency anemia secondary to blood loss (chronic); D63.8 Anemia in other chronic diseases classified elsewhere; D70.1 Agranulocytosis secondary to cancer chemotherapy; E88.09 Other disorders of plasma-protein metabolism, not elsewhere classified; K52.89 Other specified noninfective gastroenteritis and colitis; K64.8 Other hemorrhoids; E86.0 Dehydration; R19.7 Diarrhea, unspecified; R63.4 Abnormal weight loss; Z87.442 Personal history of urinary calculi; Z90.49 Acquired absence of other specified parts of digestive tract; Z98.890 Other specified postprocedural states; Z79.899 Other long term (current) drug therapy; Z87.891 Personal history of nicotine dependence; Z68.24 Body mass index [BMI] 24.0-24.9, adult; Z96.643 Presence of artificial hip joint, bilateral
CPT/HCPCS: 36415; 43239; 45380; 51700; 71045; 71260; 74177; 80048; 80053; 80307; 81001; 82784; 83516; 83605; 83630; 83735; 83880; 83993; 84484; 85025; 85610; 85730; 86140; 86256; 87040; 87045; 87086; 87177; 87324; 87328; 87449; 93005; 94799; 99252; 99285; J0692; J1442; J2001; J2405; J2543; J2920; J3410; J3480; J7030; J7050; J7121; Q9967

== ENCOUNTER → 2022-09-28 | Outpatient (CLI) | payer MEDICARE, OTHER | LOC: DX 09:47 | PROVIDERS: ATTEND Nurse Practitioner | DX: K51.919 Ulcerative colitis, unspecified with unspecified complications (principal) | CPT/HCPCS: 74250 ==

== ENCOUNTER 2022-11-02 09:46 | Inpatient (IN) | payer MEDICARE, OTHER ==
[~2022-11-02] VITALS: Ht 165.1 cm; Wt 52.2 kg
[2022-11-02] MEDS ORDERED: Vancomycin IV 1 GM in SODIUM CHLORIDE 0.9% 250ML 250 ML IV STA (10:20)
[2022-11-02] MEDS ORDERED: KETOROLAC TROMETHAMINE 30 MG/ML VIAL IV STA (10:22)
[2022-11-02] MEDS ORDERED: SODIUM CHLORIDE 0.9% 1000ML 1,000 ML IV SCH ×2 (10:30→11:00)
[2022-11-02] MEDS ORDERED: ACETAMINOPHEN 325 MG TAB PO ONE (10:30)
[2022-11-02 10:32] LABS: EOSINOPHILS # (AUTO) 0.1 (0.0-0.4); EOSINOPHILS % 2.2 % (0.0-6.0); HEMATOCRIT 24.1 % (38.2-49.6); HEMOGLOBIN 7.8 g/dL (14.0-18.0); LYMPHOCYTES # (AUTO) 0.2 (1.0-3.2); LYMPHOCYTES % 7.6 % (18.0-39.1); MEAN CORPUSCULAR HEMOGLOBIN 26.7 pg (28-32); MEAN CORPUSCULAR HGB CONC 32.4 g/dL (31-35); MEAN CORPUSCULAR VOLUME 82.5 fL (81-99); MONOCYTES # (AUTO) 0.1 (0.2-0.8); MONOCYTES % 2.9 % (4.4-11.3); NEUTROPHILS # (AUTO) 2.4 (2.1-6.9); NEUTROPHILS % 85.9 % (38.7-80.0); PLATELET COUNT 109 x10e3/uL (140-360); RED BLOOD COUNT 2.92 x10e6/uL (4.3-5.7); RED CELL DISTRIBUTION WIDTH 16.2 % (11.7-14.4)
[2022-11-02 10:44] LABS: ALBUMIN 2.2 g/dL (3.5-5.0); ANION GAP 16.4 mmol/L (8-16); CALCIUM 8.1 mg/dL (8.4-10.2); CREATININE, SERUM 0.86 mg/dL (0.72-1.25); POTASSIUM 3.4 mmol/L (3.5-5.1)
[2022-11-02 12:26] LABS: LYMPHOCYTES % (MANUAL) 11 % (19-48); MONOCYTES % (MANUAL) 13 % (3.4-9.0); NEUTROPHILS % (MANUAL) 76 % (40-74); PLATELET ESTIMATE ADEQUATE; PLATELET MORPHOLOGY COMMENT NORMAL; RBC MORPHOLOGY COMMENT NORMAL
[2022-11-02 12:27] LABS: HYPOCHROMASIA SLIGHT; OVALOCYTES FEW
[2022-11-02] MEDS: SODIUM CHLORIDE 0.9% 1000ML 1,000 ML IV SCH ×2 (13:14→21:25)
[2022-11-02 15:00] VITALS: BP 97/61
[2022-11-02 15:42] VITALS: BP 97/61
[2022-11-02 16:44] VITALS: BP 97/61
[2022-11-02 20:00] VITALS: BP 90/56
[2022-11-02 21:00] VITALS: BP 90/56
[2022-11-03] VITALS (16 sets, daily range): BP systolic 82–107; BP diastolic 52–72
[2022-11-03] MEDS ORDERED: METOPROLOL TARTRATE INJ 1 MG/ML VIAL IV PRN (00:15)
[2022-11-03] MEDS ORDERED: ONDANSETRON HCL INJ 2MG/ML 2ML 2 MG/ML VIAL IV PRN (00:15)
[2022-11-03] MEDS ORDERED: POLYETHYLENE GLYCOL 3350 17 GM PACK PO PRN (00:15)
[2022-11-03] MEDS ORDERED: Vancomycin IV 1 GM in SODIUM CHLORIDE 0.9% 250ML 250 ML IV SCH (00:15)
[2022-11-03] MEDS: ACETAMINOPHEN 325 MG TAB PO PRN ×2 (00:15→18:34)
[2022-11-03] MEDS: Vancomycin IV 1 GM in SODIUM CHLORIDE 0.9% 250ML 250 ML IV SCH ×2 (00:45→11:12)
[2022-11-03] MEDS: SODIUM CHLORIDE 0.9% 1000ML 1,000 ML IV SCH ×2 (03:09→05:16)
[2022-11-03 06:54] LABS: BASOPHILS % 0.9 % (0.0-1.0); HEMATOCRIT 22.6 % (38.2-49.6); HEMOGLOBIN 6.8 g/dL (14.0-18.0); LYMPHOCYTES # (AUTO) 0.1 (1.0-3.2); LYMPHOCYTES % 4.3 % (18.0-39.1); MEAN CORPUSCULAR HEMOGLOBIN 26.8 pg (28-32); MEAN CORPUSCULAR HGB CONC 30.1 g/dL (31-35); MONOCYTES # (AUTO) 0.1 (0.2-0.8); MONOCYTES % 2.1 % (4.4-11.3); NEUTROPHILS # (AUTO) 2.1 (2.1-6.9); NEUTROPHILS % 88.4 % (38.7-80.0); RED BLOOD COUNT 2.54 x10e6/uL (4.3-5.7); RED CELL DISTRIBUTION WIDTH 16.2 % (11.7-14.4)
[2022-11-03 06:58] LABS: PLATELET COUNT 53 x10e3/uL (140-360)
[2022-11-03 07:17] LABS: CREATININE, SERUM 0.71 mg/dL (0.72-1.25)
[2022-11-03 07:19] LABS: CHOL/HDL RATIO 6.4 (3.9-4.7); MAGNESIUM 1.3 MG/DL (1.3-2.1); PHOSPHORUS 4.1 MG/DL (2.3-4.7)
[2022-11-03 07:23] LABS: CALCIUM 6.8 mg/dL (8.4-10.2)
[2022-11-03 07:31] LABS: THYROID STIMULATING HORMONE 0.381 uIU/mL (0.350-4.940)
[2022-11-03] MEDS ORDERED: DEXTROSE 50% SYRINGE 50 ML IV ONE ×3 (07:32→08:45)
[2022-11-03 07:37] LABS: LYMPHOCYTES % (MANUAL) 7 % (19-48); MONOCYTES % (MANUAL) 11 % (3.4-9.0); NEUTROPHILS % (MANUAL) 82 % (40-74)
[2022-11-03 07:38] LABS: PLATELET ESTIMATE MODERATELY DECREASED; PLATELET MORPHOLOGY COMMENT NORMAL; RBC MORPHOLOGY COMMENT NORMAL
[2022-11-03] MEDS ORDERED: ACETAMINOPHEN 325 MG TAB PO STA (08:06)
[2022-11-03] MEDS ORDERED: DEXTROSE 50% SYRINGE 50 ML IV PRN (08:15)
[2022-11-03] MEDS ORDERED: SODIUM CHLORIDE 0.9% 250ML 250 ML IV ONE (08:15)
[2022-11-03] MEDS: MAGNESIUM OXIDE 400 MG TAB PO SCH ×2 (08:32→16:58)
[2022-11-03] MEDS: ZINC SULFATE 50 MG CAP PO SCH ×2 (08:32→16:58)
[2022-11-03] MEDS: MULTIVITAMINS/MINERALS TAB PO SCH (08:32)
[2022-11-03] MEDS: OYST-CAL-D 500MG TABLET PO SCH ×2 (08:32→16:58)
[2022-11-03] MEDS: FAMOTIDINE 20 MG TAB PO SCH ×2 (08:33→16:58)
[2022-11-03] MEDS: DOCUSATE SODIUM 100 MG CAP PO SCH ×3 (08:33→16:58)
[2022-11-03] MEDS: ASCORBIC ACID 500 MG TAB PO SCH ×2 (08:33→16:58)
[2022-11-03 09:41] LABS: IRON 7 ug/dL (65-175); TRANSFERRIN < 70 mg/dL (174-364)
[2022-11-03] MEDS: D5NS/KCL 20MEQ 1,000 ML IV SCH (09:47)
[2022-11-03] MEDS ORDERED: SODIUM CHLORIDE 0.9% 250ML 250 ML ONE (12:28)
[2022-11-03] MEDS: FUROSEMIDE INJ 10 MG/ML 2 ML VIAL IV PRN ×2 (15:03→20:01)
[2022-11-03] MEDS: CEFEPIME 2 GM in SODIUM CHLORIDE 0.9% 100 ML IV SCH ×2 (15:03→22:42)
[2022-11-03] MEDS ORDERED: PREDNISONE20 MG PO (19:40)
[2022-11-03] MEDS ORDERED: PROTONIX20 MG PO (19:41)
[2022-11-03] MEDS ORDERED: DICYCLOMINE HCL20 MG PO (19:42)
[2022-11-03] MEDS ORDERED: CENTRUM ADULTS1 EACH PO (19:43)
[2022-11-03] MEDS ORDERED: PROBIOTIC & AC1 EACH PO (19:43)
[2022-11-04] VITALS (35 sets, daily range): BP systolic 75–158; BP diastolic 45–115
[2022-11-04] MEDS ORDERED: IOPAMIDOL 370 MG/ML 100 ML INFUS..BTL INJ ONE (02:57)
[2022-11-04] MEDS: D5NS/KCL 20MEQ 1,000 ML IV SCH ×2 (03:48→15:53)
[2022-11-04] MEDS: CEFEPIME 2 GM in SODIUM CHLORIDE 0.9% 100 ML IV SCH ×3 (05:00→22:49)
[2022-11-04 05:37] LABS: ALBUMIN 1.4 g/dL (3.5-5.0); ALBUMIN/GLOBULIN RATIO 0.5 (0.8-2.0); ANION GAP 15.9 mmol/L (8-16); CALCIUM 7.2 mg/dL (8.4-10.2); CREATININE, SERUM 0.83 mg/dL (0.72-1.25)
[2022-11-04 05:43] LABS: POTASSIUM 2.9 mmol/L (3.5-5.1)
[2022-11-04 05:54] LABS: BASOPHILS % 0.4 % (0.0-1.0); HEMATOCRIT 26.7 % (38.2-49.6); HEMOGLOBIN 8.8 g/dL (14.0-18.0); LYMPHOCYTES # (AUTO) 0.2 (1.0-3.2); LYMPHOCYTES % 5.8 % (18.0-39.1); MEAN CORPUSCULAR HEMOGLOBIN 28.2 pg (28-32); MEAN CORPUSCULAR VOLUME 85.6 fL (81-99); MONOCYTES # (AUTO) 0.1 (0.2-0.8); MONOCYTES % 3.1 % (4.4-11.3); NEUTROPHILS % 76.4 % (38.7-80.0); RED BLOOD COUNT 3.12 x10e6/uL (4.3-5.7)
[2022-11-04 06:13] LABS: PLATELET COUNT 45 x10e3/uL (140-360)
[2022-11-04] MEDS ORDERED: POTASSIUM CHLORIDE 20MEQ/100ML 100 ML IV ONE (07:00)
[2022-11-04] MEDS: FAMOTIDINE 20 MG TAB PO SCH ×2 (08:19→17:03)
[2022-11-04] MEDS: ZINC SULFATE 50 MG CAP PO SCH ×2 (08:19→17:03)
[2022-11-04] MEDS: ASCORBIC ACID 500 MG TAB PO SCH ×2 (08:19→17:03)
[2022-11-04] MEDS: MAGNESIUM OXIDE 400 MG TAB PO SCH ×2 (08:19→17:03)
[2022-11-04] MEDS: MULTIVITAMINS/MINERALS TAB PO SCH (08:19)
[2022-11-04] MEDS: DOCUSATE SODIUM 100 MG CAP PO SCH ×2 (08:19→17:00)
[2022-11-04] MEDS: OYST-CAL-D 500MG TABLET PO SCH ×2 (08:19→17:02)
[2022-11-04] MEDS ORDERED: POTASSIUM CHLORIDE 10MEQ/100ML 100 ML IV ONE (10:00)
[2022-11-04 10:12] LABS: EOSINOPHILS % (MANUAL) 4 % (0-7); LYMPHOCYTES % (MANUAL) 10 % (19-48); MONOCYTES % (MANUAL) 8 % (3.4-9.0); NEUTROPHILS % (MANUAL) 78 % (40-74)
[2022-11-04 10:13] LABS: PLATELET ESTIMATE MODERATELY DECREASED; PLATELET MORPHOLOGY COMMENT NORMAL; RBC MORPHOLOGY COMMENT NORMAL
[2022-11-04 15:37] LABS: CLARITY,URINE SL CLOUDY (CLEAR); COLOR,URINE YELLOW (YELLOW); KETONES,URINE NEGATIVE (NEGATIVE); LEUKOCYTE ESTERASE ,URINE NEGATIVE (NEGATIVE); NITRITE,URINE NEGATIVE (NEGATIVE); PROTEIN,URINE DIPSTICK 2+ (NEGATIVE); URINE UROBILINOGEN 0.2 mg/dL (0.2 - 1)
[2022-11-04 15:45] LABS: BACTERIA,URINE FEW /HPF; RBC,URINE 0-5 /HPF (0-5); WBC,URINE (MAN) 0-5 /HPF (0-5)
[2022-11-04 15:46] LABS: AMORPHOUS SEDIMENT,URINE MODERATE (FEW)
[2022-11-04] MEDS ORDERED: CLINDAMYCIN PHOS 900MG/ 50ML 50 ML IV SCH (16:15)
[2022-11-04] MEDS: CLINDAMYCIN PHOS 900MG/ 50ML 50 ML IV SCH (17:03)
[2022-11-04] MEDS: ACETAMINOPHEN 325 MG TAB PO PRN (23:47)
[2022-11-05] VITALS (32 sets, daily range): BP systolic 83–151; BP diastolic 51–111
[2022-11-05] MEDS: CLINDAMYCIN PHOS 900MG/ 50ML 50 ML IV SCH ×3 (00:11→16:56)
[2022-11-05] MEDS ORDERED: IOPAMIDOL 370 MG/ML 100 ML INFUS..BTL INJ ONE (00:22)
[2022-11-05] MEDS: D5NS/KCL 20MEQ 1,000 ML IV SCH ×4 (00:45→20:59)
[2022-11-05] MEDS: CEFEPIME 2 GM in SODIUM CHLORIDE 0.9% 100 ML IV SCH ×3 (04:58→23:02)
[2022-11-05 06:39] LABS: BASOPHILS % 0.9 % (0.0-1.0); EOSINOPHILS % 0.5 % (0.0-6.0); HEMATOCRIT 26.1 % (38.2-49.6); HEMOGLOBIN 8.2 g/dL (14.0-18.0); LYMPHOCYTES # (AUTO) 0.1 (1.0-3.2); LYMPHOCYTES % 5.2 % (18.0-39.1); MEAN CORPUSCULAR HEMOGLOBIN 27.8 pg (28-32); MEAN CORPUSCULAR HGB CONC 31.4 g/dL (31-35); MEAN CORPUSCULAR VOLUME 88.5 fL (81-99); MONOCYTES # (AUTO) 0.1 (0.2-0.8); MONOCYTES % 3.3 % (4.4-11.3); NEUTROPHILS # (AUTO) 1.4 (2.1-6.9); NEUTROPHILS % 66.5 % (38.7-80.0); PLATELET COUNT 50 x10e3/uL (140-360); RED BLOOD COUNT 2.95 x10e6/uL (4.3-5.7); RED CELL DISTRIBUTION WIDTH 15.1 % (11.7-14.4); RETICULOCYTE % 0.3 % (0.8-2.2)
[2022-11-05 06:59] LABS: INR 1.32; PROTHROMBIN TIME 16.9 seconds (11.9-14.5)
[2022-11-05 07:17] LABS: ALBUMIN 1.2 g/dL (3.5-5.0); ALBUMIN/GLOBULIN RATIO 0.4 (0.8-2.0); ANION GAP 10.5 mmol/L (8-16); CALCIUM 7.4 mg/dL (8.4-10.2); CREATININE, SERUM 0.78 mg/dL (0.72-1.25)
[2022-11-05 07:21] LABS: POTASSIUM 2.5 mmol/L (3.5-5.1)
[2022-11-05 07:49] LABS: IRON 9 ug/dL (65-175); LACTATE DEHYDROGENASE 216 IU/L (125-220); TRANSFERRIN < 70 mg/dL (174-364)
[2022-11-05] MEDS ORDERED: POTASSIUM CHLORIDE 20MEQ/100ML 100 ML IV SCH (08:37)
[2022-11-05 08:49] LABS: FERRITIN 2074.05 ng/mL (21.81-274.66)
[2022-11-05] MEDS: DOCUSATE SODIUM 100 MG CAP PO SCH ×2 (09:00→16:55)
[2022-11-05 09:46] LABS: % IRON SATURATION 15 % (15-50); TOTAL IRON BINDING CAPACITY 62 ug/dL (261-478)
[2022-11-05] MEDS: MULTIVITAMINS/MINERALS TAB PO SCH (10:24)
[2022-11-05] MEDS: MAGNESIUM OXIDE 400 MG TAB PO SCH ×2 (10:24→16:55)
[2022-11-05] MEDS: ASCORBIC ACID 500 MG TAB PO SCH ×2 (10:24→16:55)
[2022-11-05] MEDS: FAMOTIDINE 20 MG TAB PO SCH ×2 (10:24→16:55)
[2022-11-05] MEDS: OYST-CAL-D 500MG TABLET PO SCH ×2 (10:24→16:55)
[2022-11-05] MEDS: ZINC SULFATE 50 MG CAP PO SCH ×2 (10:25→16:55)
[2022-11-05] MEDS: POTASSIUM CHLORIDE 20MEQ/100ML 100 ML IV SCH ×4 (11:02→20:57)
[2022-11-05 12:11] LABS: BAND NEUTROPHILS % (MANUAL) 2 %; LYMPHOCYTES % (MANUAL) 5 % (19-48); MONOCYTES % (MANUAL) 15 % (3.4-9.0); MYELOCYTES % (MANUAL) 1 % (0-0); NEUTROPHILS % (MANUAL) 77 % (40-74); PLATELET ESTIMATE MARKEDLY DECREASED; PLATELET MORPHOLOGY COMMENT NORMAL; RBC MORPHOLOGY COMMENT NORMAL
[2022-11-05 13:39] LABS: HIV 1&2 AB SCREEN NON-REACTIVE (NONREACTIVE)
[2022-11-05] MEDS ORDERED: LOPERAMIDE HCL 2 MG CAP PO PRN (15:00)
[2022-11-05] MEDS: LOPERAMIDE HCL 2 MG CAP PO PRN (16:55)
[2022-11-05] MEDS: ACETAMINOPHEN 325 MG TAB PO PRN (16:56)
[2022-11-06] VITALS (31 sets, daily range): BP systolic 82–124; BP diastolic 52–81
[2022-11-06] MEDS: CLINDAMYCIN PHOS 900MG/ 50ML 50 ML IV SCH ×3 (00:03→18:06)
[2022-11-06] MEDS: CEFEPIME 2 GM in SODIUM CHLORIDE 0.9% 100 ML IV SCH ×3 (06:05→21:58)
[2022-11-06 06:37] LABS: HEMATOCRIT 24.5 % (38.2-49.6); HEMOGLOBIN 7.7 g/dL (14.0-18.0); LYMPHOCYTES # (AUTO) 0.1 (1.0-3.2); LYMPHOCYTES % 7.1 % (18.0-39.1); MEAN CORPUSCULAR HEMOGLOBIN 28.1 pg (28-32); MEAN CORPUSCULAR HGB CONC 31.4 g/dL (31-35); MEAN CORPUSCULAR VOLUME 89.4 fL (81-99); MONOCYTES # (AUTO) 0.1 (0.2-0.8); NEUTROPHILS # (AUTO) 1.4 (2.1-6.9); NEUTROPHILS % 70.2 % (38.7-80.0); PLATELET COUNT 62 x10e3/uL (140-360); RED BLOOD COUNT 2.74 x10e6/uL (4.3-5.7); RED CELL DISTRIBUTION WIDTH 15.3 % (11.7-14.4)
[2022-11-06 06:57] LABS: ALBUMIN 1.2 g/dL (3.5-5.0); ALBUMIN/GLOBULIN RATIO 0.5 (0.8-2.0); ANION GAP 11.1 mmol/L (8-16); CALCIUM 7.4 mg/dL (8.4-10.2); CREATININE, SERUM 0.73 mg/dL (0.72-1.25); POTASSIUM 3.1 mmol/L (3.5-5.1)
[2022-11-06] MEDS: DOCUSATE SODIUM 100 MG CAP PO SCH ×3 (09:00→17:00)
[2022-11-06] MEDS ORDERED: POTASSIUM CHLORIDE 20MEQ/100ML 200 ML IV ONE ×2 (09:15→18:00)
[2022-11-06] MEDS: MULTIVITAMINS/MINERALS TAB PO SCH (09:54)
[2022-11-06] MEDS: FAMOTIDINE 20 MG TAB PO SCH ×2 (09:54→17:34)
[2022-11-06] MEDS: ZINC SULFATE 50 MG CAP PO SCH ×2 (09:54→17:33)
[2022-11-06] MEDS: ASCORBIC ACID 500 MG TAB PO SCH ×2 (09:55→17:33)
[2022-11-06] MEDS: MAGNESIUM OXIDE 400 MG TAB PO SCH ×2 (09:55→17:34)
[2022-11-06] MEDS: OYST-CAL-D 500MG TABLET PO SCH ×2 (09:55→17:33)
[2022-11-06 10:47] LABS: BAND NEUTROPHILS % (MANUAL) 1 %; LYMPHOCYTES % (MANUAL) 10 % (19-48); MONOCYTES % (MANUAL) 8 % (3.4-9.0); NEUTROPHILS % (MANUAL) 81 % (40-74); NUCLEATED RED BLOOD CELLS 2; PLATELET ESTIMATE MODERATELY DECREASED; PLATELET MORPHOLOGY COMMENT NORMAL
[2022-11-06 10:48] LABS: ANISOCYTOSIS SLIGHT
[2022-11-06] MEDS: IRON SUCROSE 100 MG in SODIUM CHLORIDE 0.9% 100 ML IV SCH (15:28)
[2022-11-06] MEDS: HYDROMORPHONE 1MG/1ML INJ IV PRN ×2 (15:35→20:18)
[2022-11-06] MEDS: ACETAMINOPHEN 325 MG TAB PO PRN (23:29)
[2022-11-07] VITALS (24 sets, daily range): BP systolic 89–124; BP diastolic 55–78
[2022-11-07] MEDS: CLINDAMYCIN PHOS 900MG/ 50ML 50 ML IV SCH ×4 (00:59→22:10)
[2022-11-07] MEDS: CEFEPIME 2 GM in SODIUM CHLORIDE 0.9% 100 ML IV SCH ×3 (05:56→22:10)
[2022-11-07 06:33] LABS: EOSINOPHILS % 0.9 % (0.0-6.0); HEMATOCRIT 23.2 % (38.2-49.6); HEMOGLOBIN 7.5 g/dL (14.0-18.0); LYMPHOCYTES # (AUTO) 0.1 (1.0-3.2); LYMPHOCYTES % 4.2 % (18.0-39.1); MEAN CORPUSCULAR HEMOGLOBIN 28.2 pg (28-32); MEAN CORPUSCULAR HGB CONC 32.3 g/dL (31-35); MEAN CORPUSCULAR VOLUME 87.2 fL (81-99); MONOCYTES # (AUTO) 0.1 (0.2-0.8); MONOCYTES % 3.3 % (4.4-11.3); NEUTROPHILS # (AUTO) 1.7 (2.1-6.9); NEUTROPHILS % 79.8 % (38.7-80.0); PLATELET COUNT 77 x10e3/uL (140-360); RED BLOOD COUNT 2.66 x10e6/uL (4.3-5.7); RED CELL DISTRIBUTION WIDTH 15.6 % (11.7-14.4)
[2022-11-07 07:07] LABS: ALBUMIN 1.2 g/dL (3.5-5.0); ALBUMIN/GLOBULIN RATIO 0.5 (0.8-2.0); ANION GAP 9.4 mmol/L (8-16); CALCIUM 7.3 mg/dL (8.4-10.2); CREATININE, SERUM 0.72 mg/dL (0.72-1.25); POTASSIUM 3.4 mmol/L (3.5-5.1)
[2022-11-07] MEDS: FAMOTIDINE 20 MG TAB PO SCH ×2 (07:30→16:41)
[2022-11-07] MEDS: ASCORBIC ACID 500 MG TAB PO SCH ×2 (09:00→16:41)
[2022-11-07] MEDS: OYST-CAL-D 500MG TABLET PO SCH ×2 (09:00→16:41)
[2022-11-07] MEDS: MESALAMINE 400 MG CAP PO SCH ×2 (09:00→16:41)
[2022-11-07] MEDS: MAGNESIUM OXIDE 400 MG TAB PO SCH ×2 (09:00→16:41)
[2022-11-07] MEDS: DOCUSATE SODIUM 100 MG CAP PO SCH ×2 (09:00→16:11)
[2022-11-07] MEDS: ZINC SULFATE 50 MG CAP PO SCH ×2 (09:00→16:41)
[2022-11-07] MEDS: MULTIVITAMINS/MINERALS TAB PO SCH (09:00)
[2022-11-07 09:16] LABS: LYMPHOCYTES % (MANUAL) 5 % (19-48); MONOCYTES % (MANUAL) 10 % (3.4-9.0); NEUTROPHILS % (MANUAL) 85 % (40-74); PLATELET ESTIMATE MODERATELY DECREASED; PLATELET MORPHOLOGY COMMENT NORMAL; RBC MORPHOLOGY COMMENT NORMAL
[2022-11-07] MEDS ORDERED: ACETAMINOPHEN 1000 MG/100 ML 100 ML IV ONE (11:05)
[2022-11-07] MEDS ORDERED: ALBUMIN 25% 12.5GM 50ML 50 ML IV ONE ×2 (11:05→12:19)
[2022-11-07] MEDS ORDERED: FENTANYL CITRATE/PF 100MCG/2 ML INJ ONE (11:11)
[2022-11-07] MEDS ORDERED: KETAMINE HCL INJ 50 MG/ML 10 ML VIAL ONE (12:26)
[2022-11-07] MEDS ORDERED: CALCIUM CHLORIDE 10% SYRINGE 10 ML IV ONE (12:57)
[2022-11-07] MEDS ORDERED: PROPOFOL IV EMULSION 10 MG/ML 20 ML VIAL ONE (13:02)
[2022-11-07] MEDS ORDERED: PHENYLEPHRINE HCL 1% 10 MG/ML VIAL ONE (13:02)
[2022-11-07] MEDS ORDERED: EPHEDRINE SULFATE INJ 50 MG/ML VIAL ONE (13:02)
[2022-11-07] MEDS ORDERED: ETOMIDATE 2 MG/ML 10 ML INJ IV ONE (13:02)
[2022-11-07] MEDS ORDERED: SEVOFLURANE INHAL SOLN 250 ML PEN BTL ONE (13:02)
[2022-11-07] MEDS ORDERED: POVIDONE IODINE 0.05% 0.05 % ML PO ONE (13:02)
[2022-11-07] MEDS ORDERED: LIDOCAINE HCL 2% LOCAL INJ 5 ML SDV VIAL INJ ONE (13:02)
[2022-11-07] MEDS: IRON SUCROSE 100 MG in SODIUM CHLORIDE 0.9% 100 ML IV SCH (14:17)
[2022-11-08] VITALS (25 sets, daily range): BP systolic 97–143; BP diastolic 56–88
[2022-11-08] MEDS: CEFEPIME 2 GM in SODIUM CHLORIDE 0.9% 100 ML IV SCH ×3 (05:50→20:45)
[2022-11-08 06:44] LABS: EOSINOPHILS % 0.5 % (0.0-6.0); HEMATOCRIT 25.6 % (38.2-49.6); HEMOGLOBIN 8.2 g/dL (14.0-18.0); LYMPHOCYTES # (AUTO) 0.1 (1.0-3.2); LYMPHOCYTES % 6.9 % (18.0-39.1); MEAN CORPUSCULAR HEMOGLOBIN 26.8 pg (28-32); MEAN CORPUSCULAR VOLUME 83.7 fL (81-99); MONOCYTES % 1.6 % (4.4-11.3); NEUTROPHILS # (AUTO) 1.5 (2.1-6.9); NEUTROPHILS % 81.4 % (38.7-80.0); PLATELET COUNT 93 x10e3/uL (140-360); RED BLOOD COUNT 3.06 x10e6/uL (4.3-5.7); RED CELL DISTRIBUTION WIDTH 17.1 % (11.7-14.4)
[2022-11-08 07:21] LABS: ANION GAP 11.7 mmol/L (8-16); CALCIUM 7.6 mg/dL (8.4-10.2); CREATININE, SERUM 0.74 mg/dL (0.72-1.25); MAGNESIUM 1.5 MG/DL (1.3-2.1)
[2022-11-08 07:22] LABS: POTASSIUM 2.7 mmol/L (3.5-5.1)
[2022-11-08] MEDS: FAMOTIDINE 20 MG TAB PO SCH ×3 (07:30→18:15)
[2022-11-08 07:35] LABS: ALBUMIN 1.4 g/dL (3.5-5.0); PHOSPHORUS 1.7 MG/DL (2.3-4.7)
[2022-11-08 07:36] LABS: ALBUMIN/GLOBULIN RATIO 0.5 (0.8-2.0)
[2022-11-08] MEDS: DOCUSATE SODIUM 100 MG CAP PO SCH ×2 (09:00→17:00)
[2022-11-08] MEDS: CLINDAMYCIN PHOS 900MG/ 50ML 50 ML IV SCH (09:14)
[2022-11-08] MEDS: POTASSIUM CHLORIDE 20MEQ/100ML 100 ML IV SCH ×4 (09:14→19:30)
[2022-11-08 09:44] LABS: BAND NEUTROPHILS % (MANUAL) 2 %; EOSINOPHILS % (MANUAL) 1 % (0-7); LYMPHOCYTES % (MANUAL) 11 % (19-48); MONOCYTES % (MANUAL) 8 % (3.4-9.0); NEUTROPHILS % (MANUAL) 78 % (40-74)
[2022-11-08 09:45] LABS: ANISOCYTOSIS SLIGHT; HYPOCHROMASIA SLIGHT; PLATELET ESTIMATE MODERATELY DECREASED; PLATELET MORPHOLOGY COMMENT NORMAL; RBC MORPHOLOGY COMMENT NORMAL; TOXIC GRANULATION MODERATE
[2022-11-08] MEDS: MESALAMINE 400 MG CAP PO SCH ×2 (10:19→18:08)
[2022-11-08] MEDS: ZINC SULFATE 50 MG CAP PO SCH ×2 (10:19→18:08)
[2022-11-08] MEDS: MULTIVITAMINS/MINERALS TAB PO SCH (10:19)
[2022-11-08] MEDS: MAGNESIUM OXIDE 400 MG TAB PO SCH ×2 (10:19→18:08)
[2022-11-08] MEDS: ASCORBIC ACID 500 MG TAB PO SCH ×2 (10:19→18:08)
[2022-11-08] MEDS: OYST-CAL-D 500MG TABLET PO SCH ×2 (10:19→18:08)
[2022-11-08] MEDS: IRON-VITAMIN-MINERAL CAPSULE PO SCH ×2 (10:19→18:08)
[2022-11-08] MEDS ORDERED: MAGNESIUM SULFATE 2GM/50ML 50 ML IV ONE (10:30)
[2022-11-08] MEDS ORDERED: MAGNESIUM SULF 1GRAM/DEXTROSE 100 ML IV ONE (12:30)
[2022-11-08] MEDS: LOPERAMIDE HCL 2 MG CAP PO PRN ×2 (12:42→17:18)
[2022-11-08] MEDS: HYDROMORPHONE 1MG/1ML INJ IV PRN (12:43)
[2022-11-08] MEDS ORDERED: POTASSIUM PHOSPHATE 15 MM in SODIUM CHLORIDE 0.9% 250ML 250 ML IV ONE (13:00)
[2022-11-08 13:09] LABS: WBC,FECAL (FECAL LACTOFERRIN) POSITIVE (NEGATIVE)
[2022-11-08] MEDS ORDERED: SODIUM CHLORIDE 0.9% 100 ML ONE (14:40)
[2022-11-08] MEDS ORDERED: CHOLESTYRAMINE 4 GM PACKET PO ONE (15:00)
[2022-11-08] MEDS: BALSAM PERU/CASTOR OIL 60 GM OINT...G. TP SCH ×2 (16:29→20:45)
[2022-11-08] MEDS: IRON SUCROSE 100 MG in SODIUM CHLORIDE 0.9% 100 ML IV SCH (17:01)
[2022-11-08] MEDS: NYSTATIN SUSPENSION 5 ML UDC PO SCH ×2 (17:18→20:45)
[2022-11-08] MEDS: NYSTATIN/TRIAMCINOLONE 15 GM CR TOP SCH (18:15)
[2022-11-08] MEDS ORDERED: NALOXONE HCL INJ 0.4 MG/ML AMP IV PRN (23:15)
[2022-11-09] VITALS (19 sets, daily range): BP systolic 94–145; BP diastolic 58–88
[2022-11-09] MEDS: HYDROMORPHONE 1MG/1ML INJ IV PRN (00:35)
[2022-11-09 04:58] LABS: BASOPHILS % 0.8 % (0.0-1.0); EOSINOPHILS % 0.8 % (0.0-6.0); HEMATOCRIT 27.3 % (38.2-49.6); HEMOGLOBIN 8.5 g/dL (14.0-18.0); LYMPHOCYTES # (AUTO) 0.2 (1.0-3.2); MEAN CORPUSCULAR HEMOGLOBIN 26.8 pg (28-32); MEAN CORPUSCULAR HGB CONC 31.1 g/dL (31-35); MEAN CORPUSCULAR VOLUME 86.1 fL (81-99); MONOCYTES # (AUTO) 0.1 (0.2-0.8); NEUTROPHILS # (AUTO) 1.9 (2.1-6.9); NEUTROPHILS % 77.2 % (38.7-80.0); PLATELET COUNT 103 x10e3/uL (140-360); RED BLOOD COUNT 3.17 x10e6/uL (4.3-5.7); RED CELL DISTRIBUTION WIDTH 17.1 % (11.7-14.4)
[2022-11-09] MEDS: NYSTATIN SUSPENSION 5 ML UDC PO SCH ×7 (05:00→20:59)
[2022-11-09 05:18] LABS: CALCIUM 7.4 mg/dL (8.4-10.2); CREATININE, SERUM 0.72 mg/dL (0.72-1.25); MAGNESIUM 1.9 MG/DL (1.3-2.1); PHOSPHORUS 1.5 MG/DL (2.3-4.7)
[2022-11-09] MEDS: CEFEPIME 2 GM in SODIUM CHLORIDE 0.9% 100 ML IV SCH ×3 (05:33→20:59)
[2022-11-09] MEDS ORDERED: BUPIVACAINE HCL 0.25% 10ML MPF VIAL INJ ONE (07:30)
[2022-11-09] MEDS ORDERED: LIDOCAINE 1% 10 ML MULTIDOSE VIAL IJ ONE (07:30)
[2022-11-09] MEDS: FAMOTIDINE 20 MG TAB PO SCH ×3 (08:20→17:27)
[2022-11-09] MEDS ORDERED: POTASSIUM PHOSPHATE 30 MM in SODIUM CHLORIDE 0.9% 250ML 250 ML IV ONE (09:00)
[2022-11-09] MEDS: DOCUSATE SODIUM 100 MG CAP PO SCH ×2 (09:00→17:00)
[2022-11-09 09:04] LABS: BAND NEUTROPHILS % (MANUAL) 1 %; LYMPHOCYTES % (MANUAL) 7 % (19-48); MONOCYTES % (MANUAL) 4 % (3.4-9.0); NEUTROPHILS % (MANUAL) 87 % (40-74); PLATELET ESTIMATE SLIGHTLY DECREASED; PLATELET MORPHOLOGY COMMENT NORMAL; RBC MORPHOLOGY COMMENT NORMAL
[2022-11-09] MEDS: MESALAMINE 400 MG CAP PO SCH ×3 (10:43→17:28)
[2022-11-09] MEDS: MULTIVITAMINS/MINERALS TAB PO SCH (10:44)
[2022-11-09] MEDS: ZINC SULFATE 50 MG CAP PO SCH ×3 (10:44→17:27)
[2022-11-09] MEDS: MAGNESIUM OXIDE 400 MG TAB PO SCH ×3 (10:44→17:28)
[2022-11-09] MEDS: IRON-VITAMIN-MINERAL CAPSULE PO SCH ×2 (10:44→17:00)
[2022-11-09] MEDS: ASCORBIC ACID 500 MG TAB PO SCH ×2 (10:44→17:00)
[2022-11-09] MEDS: NYSTATIN/TRIAMCINOLONE 15 GM CR TOP SCH ×2 (10:44→18:04)
[2022-11-09] MEDS: BALSAM PERU/CASTOR OIL 60 GM OINT...G. TP SCH ×3 (10:45→18:04)
[2022-11-09] MEDS: OYST-CAL-D 500MG TABLET PO SCH ×2 (10:52→17:00)
[2022-11-09] MEDS: METOPROLOL SUCCINATE 25 MG TAB XL PO SCH (10:53)
[2022-11-09] MEDS ORDERED: MAGNESIUM SULF 1GRAM/DEXTROSE 100 ML IV ONE (11:00)
[2022-11-09] MEDS: LOPERAMIDE HCL 2 MG CAP PO PRN (14:49)
[2022-11-09] MEDS: TRAMADOL HCL 50 MG TAB PO PRN (14:49)
[2022-11-09] MEDS: ACETAMINOPHEN 325 MG TAB PO PRN (14:49)
[2022-11-09] MEDS ORDERED: D5.45%NS/KCL 20MEQ 1,000 ML IV SCH (15:00)
[2022-11-09] MEDS: POTASSIUM CHLORIDE 20MEQ/100ML 100 ML IV SCH ×2 (15:01→17:26)
[2022-11-09] MEDS: LACTOBACILLUS ACIDOPHILUS CAPSULE PO SCH (17:00)
[2022-11-10] VITALS (16 sets, daily range): BP systolic 96–128; BP diastolic 57–80
[2022-11-10] MEDS: CEFEPIME 2 GM in SODIUM CHLORIDE 0.9% 100 ML IV SCH ×3 (05:24→20:44)
[2022-11-10] MEDS: NYSTATIN SUSPENSION 5 ML UDC PO SCH ×5 (05:24→20:43)
[2022-11-10 05:52] LABS: BASOPHILS % 0.9 % (0.0-1.0); EOSINOPHILS % 1.4 % (0.0-6.0); HEMATOCRIT 26.5 % (38.2-49.6); LYMPHOCYTES # (AUTO) 0.2 (1.0-3.2); LYMPHOCYTES % 7.5 % (18.0-39.1); MEAN CORPUSCULAR HEMOGLOBIN 27.5 pg (28-32); MEAN CORPUSCULAR HGB CONC 30.2 g/dL (31-35); MEAN CORPUSCULAR VOLUME 91.1 fL (81-99); MONOCYTES # (AUTO) 0.1 (0.2-0.8); MONOCYTES % 2.4 % (4.4-11.3); NEUTROPHILS # (AUTO) 1.6 (2.1-6.9); NEUTROPHILS % 76.5 % (38.7-80.0); PLATELET COUNT 96 x10e3/uL (140-360); RED BLOOD COUNT 2.91 x10e6/uL (4.3-5.7); RED CELL DISTRIBUTION WIDTH 17.3 % (11.7-14.4)
[2022-11-10 06:22] LABS: ANION GAP 10.2 mmol/L (8-16); CREATININE, SERUM 0.61 mg/dL (0.72-1.25); POTASSIUM 3.2 mmol/L (3.5-5.1)
[2022-11-10 06:28] LABS: CALCIUM 6.6 mg/dL (8.4-10.2)
[2022-11-10] MEDS: FAMOTIDINE 20 MG TAB PO SCH ×2 (07:46→16:55)
[2022-11-10] MEDS: DOCUSATE SODIUM 100 MG CAP PO SCH ×2 (08:41→17:00)
[2022-11-10] MEDS: ASPIRIN 81 MG ENTERIC COATED PO SCH (08:48)
[2022-11-10] MEDS: METOPROLOL SUCCINATE 25 MG TAB XL PO SCH (08:49)
[2022-11-10 08:52] LABS: BAND NEUTROPHILS % (MANUAL) 1 %; LYMPHOCYTES % (MANUAL) 3 % (19-48); MONOCYTES % (MANUAL) 7 % (3.4-9.0); NEUTROPHILS % (MANUAL) 86 % (40-74); PLATELET ESTIMATE MODERATELY DECREASED; PLATELET MORPHOLOGY COMMENT NORMAL; RBC MORPHOLOGY COMMENT NORMAL
[2022-11-10] MEDS ORDERED: POTASSIUM PHOSPHATE 15 MM in SODIUM CHLORIDE 0.9% 250ML 250 ML IV ONE (10:30)
[2022-11-10] MEDS: POTASSIUM CHLORIDE 20MEQ/100ML 100 ML IV SCH ×3 (10:34→12:44)
[2022-11-10] MEDS ORDERED: FUROSEMIDE INJ 10 MG/ML 4 ML VIAL IV ONE ×2 (11:45→12:15)
[2022-11-10] MEDS: LACTOBACILLUS ACIDOPHILUS CAPSULE PO SCH ×2 (12:44→20:43)
[2022-11-10] MEDS: OYST-CAL-D 500MG TABLET PO SCH ×2 (12:44→20:43)
[2022-11-10] MEDS: MAGNESIUM OXIDE 400 MG TAB PO SCH ×2 (12:44→20:42)
[2022-11-10] MEDS: MESALAMINE 400 MG CAP PO SCH ×2 (12:44→20:42)
[2022-11-10] MEDS: MULTIVITAMINS/MINERALS TAB PO SCH (12:44)
[2022-11-10] MEDS: ZINC SULFATE 50 MG CAP PO SCH ×2 (12:44→20:42)
[2022-11-10] MEDS: IRON-VITAMIN-MINERAL CAPSULE PO SCH ×2 (12:45→20:42)
[2022-11-10] MEDS: BALSAM PERU/CASTOR OIL 60 GM OINT...G. TP SCH ×3 (12:45→20:44)
[2022-11-10] MEDS: NYSTATIN/TRIAMCINOLONE 15 GM CR TOP SCH ×2 (12:45→18:26)
[2022-11-10] MEDS: ASCORBIC ACID 500 MG TAB PO SCH ×2 (12:45→20:43)
[2022-11-10] MEDS: ACETAMINOPHEN 325 MG TAB PO PRN ×2 (13:40→21:41)
[2022-11-10] MEDS: Vancomycin IV 1 GM in SODIUM CHLORIDE 0.9% 250ML 250 ML IV SCH ×2 (15:10→22:25)
[2022-11-11] VITALS (15 sets, daily range): BP systolic 107–133; BP diastolic 65–81
[2022-11-11] MEDS: HYDROMORPHONE 1MG/1ML INJ IV PRN ×2 (02:14→23:32)
[2022-11-11] MEDS: CEFEPIME 2 GM in SODIUM CHLORIDE 0.9% 100 ML IV SCH ×3 (05:36→22:42)
[2022-11-11] MEDS: NYSTATIN SUSPENSION 5 ML UDC PO SCH ×5 (05:36→21:50)
[2022-11-11 07:36] LABS: BASOPHILS % 0.4 % (0.0-1.0); EOSINOPHILS % 0.4 % (0.0-6.0); HEMATOCRIT 28.3 % (38.2-49.6); HEMOGLOBIN 8.8 g/dL (14.0-18.0); LYMPHOCYTES # (AUTO) 0.2 (1.0-3.2); LYMPHOCYTES % 7.2 % (18.0-39.1); MEAN CORPUSCULAR HEMOGLOBIN 26.9 pg (28-32); MEAN CORPUSCULAR HGB CONC 31.1 g/dL (31-35); MEAN CORPUSCULAR VOLUME 86.5 fL (81-99); MONOCYTES % 1.5 % (4.4-11.3); NEUTROPHILS % 77.2 % (38.7-80.0); PLATELET COUNT 122 x10e3/uL (140-360); RED BLOOD COUNT 3.27 x10e6/uL (4.3-5.7); RED CELL DISTRIBUTION WIDTH 16.6 % (11.7-14.4)
[2022-11-11 07:43] LABS: ALBUMIN 1.5 g/dL (3.5-5.0); ALBUMIN/GLOBULIN RATIO 0.6 (0.8-2.0); ANION GAP 9.2 mmol/L (8-16); CALCIUM 7.5 mg/dL (8.4-10.2); CREATININE, SERUM 0.72 mg/dL (0.72-1.25); POTASSIUM 3.2 mmol/L (3.5-5.1)
[2022-11-11] MEDS: FAMOTIDINE 20 MG TAB PO SCH ×2 (08:25→16:30)
[2022-11-11] MEDS: MULTIVITAMINS/MINERALS TAB PO SCH (08:25)
[2022-11-11] MEDS: IRON-VITAMIN-MINERAL CAPSULE PO SCH ×2 (08:25→21:49)
[2022-11-11] MEDS: MAGNESIUM OXIDE 400 MG TAB PO SCH ×2 (08:25→21:49)
[2022-11-11] MEDS: ASPIRIN 81 MG ENTERIC COATED PO SCH (08:26)
[2022-11-11] MEDS: MESALAMINE 400 MG CAP PO SCH ×2 (08:26→21:49)
[2022-11-11] MEDS: ZINC SULFATE 50 MG CAP PO SCH ×2 (08:26→21:50)
[2022-11-11] MEDS: LACTOBACILLUS ACIDOPHILUS CAPSULE PO SCH ×2 (08:26→21:50)
[2022-11-11] MEDS: OYST-CAL-D 500MG TABLET PO SCH ×2 (08:26→21:50)
[2022-11-11] MEDS: METOPROLOL SUCCINATE 25 MG TAB XL PO SCH (08:26)
[2022-11-11] MEDS: ASCORBIC ACID 500 MG TAB PO SCH ×2 (08:27→21:50)
[2022-11-11] MEDS: Vancomycin IV 1 GM in SODIUM CHLORIDE 0.9% 250ML 250 ML IV SCH ×2 (08:28→21:51)
[2022-11-11] MEDS: POTASSIUM CHLORIDE 20MEQ/100ML 100 ML IV SCH ×2 (08:28→11:00)
[2022-11-11] MEDS: DOCUSATE SODIUM 100 MG CAP PO SCH ×2 (08:34→17:00)
[2022-11-11 09:03] LABS: BAND NEUTROPHILS % (MANUAL) 1 %; LYMPHOCYTES % (MANUAL) 6 % (19-48); MONOCYTES % (MANUAL) 11 % (3.4-9.0); MYELOCYTES % (MANUAL) 1 % (0-0); NEUTROPHILS % (MANUAL) 81 % (40-74); PLATELET ESTIMATE SLIGHTLY DECREASED; PLATELET MORPHOLOGY COMMENT NORMAL; RBC MORPHOLOGY COMMENT NORMAL
[2022-11-11] MEDS: NYSTATIN/TRIAMCINOLONE 15 GM CR TOP SCH ×2 (11:00→17:02)
[2022-11-11] MEDS: BALSAM PERU/CASTOR OIL 60 GM OINT...G. TP SCH ×3 (11:00→21:00)
[2022-11-11] MEDS: LEVALBUTEROL HCL SOLN NEBU 0.63 MG/3 ML NEB INH SCH ×2 (14:00→18:55)
[2022-11-11] MEDS: ACETAMINOPHEN 325 MG TAB PO PRN (19:58)
[2022-11-12] VITALS (21 sets, daily range): BP systolic 97–128; BP diastolic 54–95
[2022-11-12] MEDS: LEVALBUTEROL HCL SOLN NEBU 0.63 MG/3 ML NEB INH SCH ×4 (01:00→18:55)
[2022-11-12] MEDS: NYSTATIN SUSPENSION 5 ML UDC PO SCH ×5 (04:58→20:12)
[2022-11-12] MEDS: CEFEPIME 2 GM in SODIUM CHLORIDE 0.9% 100 ML IV SCH ×3 (04:58→21:04)
[2022-11-12 07:10] LABS: BASOPHILS % 0.7 % (0.0-1.0); EOSINOPHILS % 0.3 % (0.0-6.0); HEMATOCRIT 28.4 % (38.2-49.6); HEMOGLOBIN 8.7 g/dL (14.0-18.0); LYMPHOCYTES # (AUTO) 0.3 (1.0-3.2); LYMPHOCYTES % 8.9 % (18.0-39.1); MEAN CORPUSCULAR HEMOGLOBIN 26.8 pg (28-32); MEAN CORPUSCULAR HGB CONC 30.6 g/dL (31-35); MEAN CORPUSCULAR VOLUME 87.4 fL (81-99); MONOCYTES # (AUTO) 0.1 (0.2-0.8); MONOCYTES % 2.6 % (4.4-11.3); NEUTROPHILS # (AUTO) 2.2 (2.1-6.9); NEUTROPHILS % 72.7 % (38.7-80.0); PLATELET COUNT 110 x10e3/uL (140-360); RED BLOOD COUNT 3.25 x10e6/uL (4.3-5.7); RED CELL DISTRIBUTION WIDTH 16.5 % (11.7-14.4)
[2022-11-12 07:29] LABS: ALBUMIN 1.5 g/dL (3.5-5.0); ALBUMIN/GLOBULIN RATIO 0.5 (0.8-2.0); ANION GAP 10.1 mmol/L (8-16); CALCIUM 7.3 mg/dL (8.4-10.2); CREATININE, SERUM 0.71 mg/dL (0.72-1.25); POTASSIUM 3.1 mmol/L (3.5-5.1)
[2022-11-12] MEDS: DOCUSATE SODIUM 100 MG CAP PO SCH ×2 (09:00→16:58)
[2022-11-12] MEDS: MESALAMINE 400 MG CAP PO SCH ×2 (09:17→20:12)
[2022-11-12] MEDS: METOPROLOL SUCCINATE 25 MG TAB XL PO SCH (09:18)
[2022-11-12] MEDS: MULTIVITAMINS/MINERALS TAB PO SCH (09:18)
[2022-11-12] MEDS: ZINC SULFATE 50 MG CAP PO SCH ×2 (09:18→20:33)
[2022-11-12] MEDS: IRON-VITAMIN-MINERAL CAPSULE PO SCH ×2 (09:18→20:33)
[2022-11-12] MEDS: ASPIRIN 81 MG ENTERIC COATED PO SCH (09:18)
[2022-11-12] MEDS: OYST-CAL-D 500MG TABLET PO SCH ×2 (09:18→20:12)
[2022-11-12] MEDS: ASCORBIC ACID 500 MG TAB PO SCH ×2 (09:18→20:12)
[2022-11-12] MEDS: MAGNESIUM OXIDE 400 MG TAB PO SCH ×2 (09:18→20:12)
[2022-11-12] MEDS: LACTOBACILLUS ACIDOPHILUS CAPSULE PO SCH ×2 (09:18→20:12)
[2022-11-12] MEDS: BALSAM PERU/CASTOR OIL 60 GM OINT...G. TP SCH ×3 (09:19→20:33)
[2022-11-12] MEDS: FAMOTIDINE 20 MG TAB PO SCH ×2 (09:19→17:35)
[2022-11-12] MEDS: NYSTATIN/TRIAMCINOLONE 15 GM CR TOP SCH ×2 (09:19→17:35)
[2022-11-12] MEDS: Vancomycin IV 1 GM in SODIUM CHLORIDE 0.9% 250ML 250 ML IV SCH ×2 (09:19→20:18)
[2022-11-12 11:12] LABS: BAND NEUTROPHILS % (MANUAL) 10 %; LYMPHOCYTES % (MANUAL) 3 % (19-48); METAMYELOCYTES % (MANUAL) 3 % (0-0); MONOCYTES % (MANUAL) 5 % (3.4-9.0); MYELOCYTES % (MANUAL) 2 % (0-0); NEUTROPHILS % (MANUAL) 77 % (40-74); PLATELET ESTIMATE SLIGHTLY DECREASED; PLATELET MORPHOLOGY COMMENT NORMAL
[2022-11-12] MEDS: ACETAMINOPHEN 325 MG TAB PO PRN (13:45)
[2022-11-12] MEDS ORDERED: SODIUM CHLORIDE 0.9% 100 ML ONE (13:58)
[2022-11-12] MEDS ORDERED: IOPAMIDOL 370 MG/ML 100 ML INFUS..BTL INJ ONE (13:58)
[2022-11-13] VITALS (20 sets, daily range): BP systolic 92–126; BP diastolic 57–74
[2022-11-13] MEDS: LEVALBUTEROL HCL SOLN NEBU 0.63 MG/3 ML NEB INH SCH ×4 (01:15→19:28)
[2022-11-13] MEDS: LIDOCAINE VISC 2% SOLN 15 ML UDC PO PRN ×3 (02:01→20:15)
[2022-11-13] MEDS: NYSTATIN SUSPENSION 5 ML UDC PO SCH ×5 (04:37→19:48)
[2022-11-13] MEDS: CEFEPIME 2 GM in SODIUM CHLORIDE 0.9% 100 ML IV SCH (05:57)
[2022-11-13 07:51] LABS: BASOPHILS % 0.4 % (0.0-1.0); EOSINOPHILS % 0.9 % (0.0-6.0); HEMATOCRIT 24.6 % (38.2-49.6); HEMOGLOBIN 7.9 g/dL (14.0-18.0); LYMPHOCYTES # (AUTO) 0.3 (1.0-3.2); LYMPHOCYTES % 12.6 % (18.0-39.1); MEAN CORPUSCULAR HEMOGLOBIN 26.5 pg (28-32); MEAN CORPUSCULAR HGB CONC 32.1 g/dL (31-35); MEAN CORPUSCULAR VOLUME 82.6 fL (81-99); MONOCYTES % 1.8 % (4.4-11.3); NEUTROPHILS # (AUTO) 1.6 (2.1-6.9); NEUTROPHILS % 72.2 % (38.7-80.0); RED BLOOD COUNT 2.98 x10e6/uL (4.3-5.7); RED CELL DISTRIBUTION WIDTH 16.3 % (11.7-14.4)
[2022-11-13 07:56] LABS: PLATELET COUNT 121 x10e3/uL (140-360)
[2022-11-13 08:12] LABS: ANION GAP 9.6 mmol/L (8-16); CALCIUM 7.1 mg/dL (8.4-10.2); CREATININE, SERUM 0.71 mg/dL (0.72-1.25)
[2022-11-13 08:13] LABS: POTASSIUM 2.6 mmol/L (3.5-5.1)
[2022-11-13] MEDS ORDERED: POTASSIUM CHLORIDE 20MEQ/100ML 200 ML IV ONE ×2 (08:30→18:00)
[2022-11-13] MEDS: ASCORBIC ACID 500 MG TAB PO SCH ×2 (08:39→19:49)
[2022-11-13] MEDS: FAMOTIDINE 20 MG TAB PO SCH ×2 (08:39→16:53)
[2022-11-13] MEDS: MAGNESIUM OXIDE 400 MG TAB PO SCH ×2 (08:39→19:49)
[2022-11-13] MEDS: ASPIRIN 81 MG ENTERIC COATED PO SCH (08:39)
[2022-11-13] MEDS: IRON-VITAMIN-MINERAL CAPSULE PO SCH ×2 (08:39→19:49)
[2022-11-13] MEDS: METOPROLOL SUCCINATE 25 MG TAB XL PO SCH (08:39)
[2022-11-13] MEDS: MULTIVITAMINS/MINERALS TAB PO SCH (08:39)
[2022-11-13] MEDS: OYST-CAL-D 500MG TABLET PO SCH ×2 (08:39→19:48)
[2022-11-13] MEDS: Vancomycin IV 1 GM in SODIUM CHLORIDE 0.9% 250ML 250 ML IV SCH (08:39)
[2022-11-13] MEDS: ZINC SULFATE 50 MG CAP PO SCH ×2 (08:39→19:49)
[2022-11-13] MEDS: LACTOBACILLUS ACIDOPHILUS CAPSULE PO SCH ×2 (08:39→19:49)
[2022-11-13] MEDS: BALSAM PERU/CASTOR OIL 60 GM OINT...G. TP SCH ×3 (08:40→20:56)
[2022-11-13] MEDS: NYSTATIN/TRIAMCINOLONE 15 GM CR TOP SCH ×2 (08:40→16:52)
[2022-11-13] MEDS: DOCUSATE SODIUM 100 MG CAP PO SCH ×2 (08:43→16:53)
[2022-11-13] MEDS: MESALAMINE 400 MG CAP PO SCH ×2 (09:00→19:48)
[2022-11-13 11:13] LABS: BAND NEUTROPHILS % (MANUAL) 5 %; EOSINOPHILS % (MANUAL) 2 % (0-7); LYMPHOCYTES % (MANUAL) 11 % (19-48); METAMYELOCYTES % (MANUAL) 1 % (0-0); MONOCYTES % (MANUAL) 6 % (3.4-9.0); MYELOCYTES % (MANUAL) 2 % (0-0); NEUTROPHILS % (MANUAL) 70 % (40-74)
[2022-11-13 11:14] LABS: PLATELET ESTIMATE SLIGHTLY DECREASED; PLATELET MORPHOLOGY COMMENT NORMAL
[2022-11-13] MEDS ORDERED: MAGNESIUM SULFATE 2GM/50ML 50 ML IV ONE (16:00)
[2022-11-13] MEDS: FUROSEMIDE INJ 10 MG/ML 2 ML VIAL IV SCH (17:57)
[2022-11-13] MEDS: HYDROMORPHONE 1MG/1ML INJ IV PRN (21:58)
[2022-11-14] VITALS (23 sets, daily range): BP systolic 92–132; BP diastolic 57–77
[2022-11-14 05:36] LABS: BASOPHILS % 1.1 % (0.0-1.0); EOSINOPHILS % 0.7 % (0.0-6.0); HEMATOCRIT 30.7 % (38.2-49.6); HEMOGLOBIN 9.3 g/dL (14.0-18.0); LYMPHOCYTES # (AUTO) 0.4 (1.0-3.2); LYMPHOCYTES % 14.8 % (18.0-39.1); MEAN CORPUSCULAR HEMOGLOBIN 26.5 pg (28-32); MEAN CORPUSCULAR HGB CONC 30.3 g/dL (31-35); MEAN CORPUSCULAR VOLUME 87.5 fL (81-99); MONOCYTES # (AUTO) 0.1 (0.2-0.8); MONOCYTES % 2.5 % (4.4-11.3); NEUTROPHILS # (AUTO) 1.9 (2.1-6.9); NEUTROPHILS % 67.9 % (38.7-80.0); PLATELET COUNT 135 x10e3/uL (140-360); RED BLOOD COUNT 3.51 x10e6/uL (4.3-5.7); RED CELL DISTRIBUTION WIDTH 16.1 % (11.7-14.4)
[2022-11-14] MEDS: FUROSEMIDE INJ 10 MG/ML 2 ML VIAL IV SCH ×2 (05:41→16:13)
[2022-11-14] MEDS: NYSTATIN SUSPENSION 5 ML UDC PO SCH ×5 (05:42→20:11)
[2022-11-14 05:52] LABS: ALBUMIN 1.7 g/dL (3.5-5.0); ALBUMIN/GLOBULIN RATIO 0.5 (0.8-2.0); ANION GAP 12.4 mmol/L (8-16); CALCIUM 7.4 mg/dL (8.4-10.2); CREATININE, SERUM 0.77 mg/dL (0.72-1.25); POTASSIUM 3.4 mmol/L (3.5-5.1)
[2022-11-14] MEDS: LEVALBUTEROL HCL SOLN NEBU 0.63 MG/3 ML NEB INH SCH ×3 (07:37→19:44)
[2022-11-14] MEDS: LIDOCAINE VISC 2% SOLN 15 ML UDC PO PRN (08:02)
[2022-11-14] MEDS: MESALAMINE 400 MG CAP PO SCH ×2 (08:03→20:14)
[2022-11-14] MEDS: DOCUSATE SODIUM 100 MG CAP PO SCH ×2 (08:03→16:13)
[2022-11-14] MEDS: MAGNESIUM OXIDE 400 MG TAB PO SCH (08:04)
[2022-11-14] MEDS: ASPIRIN 81 MG ENTERIC COATED PO SCH (08:04)
[2022-11-14] MEDS: OYST-CAL-D 500MG TABLET PO SCH ×2 (08:05→20:10)
[2022-11-14] MEDS: LACTOBACILLUS ACIDOPHILUS CAPSULE PO SCH ×2 (08:05→20:11)
[2022-11-14] MEDS: ZINC SULFATE 50 MG CAP PO SCH ×2 (08:05→20:14)
[2022-11-14] MEDS: FAMOTIDINE 20 MG TAB PO SCH (08:07)
[2022-11-14] MEDS: IRON-VITAMIN-MINERAL CAPSULE PO SCH ×2 (08:07→20:23)
[2022-11-14] MEDS: MULTIVITAMINS/MINERALS TAB PO SCH (08:07)
[2022-11-14] MEDS: ASCORBIC ACID 500 MG TAB PO SCH ×2 (08:07→20:11)
[2022-11-14] MEDS: METOPROLOL SUCCINATE 25 MG TAB XL PO SCH (08:07)
[2022-11-14] MEDS: BALSAM PERU/CASTOR OIL 60 GM OINT...G. TP SCH ×3 (08:08→21:13)
[2022-11-14] MEDS: NYSTATIN/TRIAMCINOLONE 15 GM CR TOP SCH ×2 (08:08→16:43)
[2022-11-14 08:24] LABS: BAND NEUTROPHILS % (MANUAL) 3 %; LYMPHOCYTES % (MANUAL) 15 % (19-48); MONOCYTES % (MANUAL) 18 % (3.4-9.0); NEUTROPHILS % (MANUAL) 63 % (40-74); PLATELET ESTIMATE SLIGHTLY DECREASED; PLATELET MORPHOLOGY COMMENT NORMAL; RBC MORPHOLOGY COMMENT NORMAL
[2022-11-14] MEDS: POTASSIUM CHLORIDE 20MEQ/100ML 100 ML IV SCH ×2 (11:31→11:33)
[2022-11-14] MEDS: FAMOTIDINE 20 MG/2 ML VIAL IV SCH (16:13)
[2022-11-14] MEDS: CLINDAMYCIN IV SCH ×2 (16:13→23:19)
[2022-11-14] MEDS: [UNRECOGNIZED DRUG - OTHER] IV SCH ×2 (16:13→23:19)
[2022-11-14] MEDS: ACETAMINOPHEN 325 MG TAB PO PRN (20:10)
[2022-11-14] MEDS: HYDROMORPHONE 1MG/1ML INJ IV PRN (21:23)
[2022-11-15] VITALS (20 sets, daily range): BP systolic 86–123; BP diastolic 55–81
[2022-11-15] MEDS: LEVALBUTEROL HCL SOLN NEBU 0.63 MG/3 ML NEB INH SCH ×4 (01:50→18:37)
[2022-11-15] MEDS: FUROSEMIDE INJ 10 MG/ML 2 ML VIAL IV SCH ×2 (05:38→17:49)
[2022-11-15] MEDS: NYSTATIN SUSPENSION 5 ML UDC PO SCH ×4 (05:38→17:24)
[2022-11-15 06:07] LABS: BASOPHILS % 0.7 % (0.0-1.0); EOSINOPHILS % 0.7 % (0.0-6.0); HEMATOCRIT 30.4 % (38.2-49.6); HEMOGLOBIN 9.6 g/dL (14.0-18.0); LYMPHOCYTES # (AUTO) 0.4 (1.0-3.2); LYMPHOCYTES % 13.4 % (18.0-39.1); MEAN CORPUSCULAR HEMOGLOBIN 26.4 pg (28-32); MEAN CORPUSCULAR HGB CONC 31.6 g/dL (31-35); MEAN CORPUSCULAR VOLUME 83.5 fL (81-99); MONOCYTES # (AUTO) 0.1 (0.2-0.8); MONOCYTES % 2.5 % (4.4-11.3); PLATELET COUNT 160 x10e3/uL (140-360); RED BLOOD COUNT 3.64 x10e6/uL (4.3-5.7)
[2022-11-15 06:44] LABS: ALBUMIN 1.7 g/dL (3.5-5.0); ALBUMIN/GLOBULIN RATIO 0.5 (0.8-2.0); ANION GAP 13.1 mmol/L (8-16); CALCIUM 7.8 mg/dL (8.4-10.2); CREATININE, SERUM 0.79 mg/dL (0.72-1.25); POTASSIUM 3.1 mmol/L (3.5-5.1)
[2022-11-15] MEDS: FAMOTIDINE 20 MG/2 ML VIAL IV SCH ×2 (08:02→17:39)
[2022-11-15] MEDS: DOCUSATE SODIUM 100 MG CAP PO SCH ×2 (08:02→15:18)
[2022-11-15 08:08] LABS: BAND NEUTROPHILS % (MANUAL) 4 %; LYMPHOCYTES % (MANUAL) 7 % (19-48); MONOCYTES % (MANUAL) 6 % (3.4-9.0); NEUTROPHILS % (MANUAL) 83 % (40-74)
[2022-11-15] MEDS: POTASSIUM CHLORIDE 20MEQ/100ML 100 ML IV SCH ×2 (08:08→10:37)
[2022-11-15] MEDS: CLINDAMYCIN 600MG / 50ML 50 ML IV SCH ×3 (08:08→23:22)
[2022-11-15 08:09] LABS: PLATELET ESTIMATE ADEQUATE
[2022-11-15 08:13] LABS: ANISOCYTOSIS MODERATE; PLATELET MORPHOLOGY COMMENT NORMAL; RBC MORPHOLOGY COMMENT ABNORMAL
[2022-11-15] MEDS: LACTOBACILLUS ACIDOPHILUS CAPSULE PO SCH ×2 (08:25→17:49)
[2022-11-15] MEDS: ZINC SULFATE 50 MG CAP PO SCH ×2 (08:25→17:43)
[2022-11-15] MEDS: ASPIRIN 81 MG ENTERIC COATED PO SCH (08:25)
[2022-11-15] MEDS: BALSAM PERU/CASTOR OIL 60 GM OINT...G. TP SCH ×3 (08:26→20:46)
[2022-11-15] MEDS: TRAMADOL HCL 50 MG TAB PO PRN (08:26)
[2022-11-15] MEDS: METOPROLOL SUCCINATE 25 MG TAB XL PO SCH (08:27)
[2022-11-15] MEDS: COLLAGENASE 5 GM TUBE TP SCH (09:00)
[2022-11-15] MEDS ORDERED: SODIUM HYPOCHLORITE 0.25% 480 ML SOLN IR ONE (10:30)
[2022-11-15] MEDS: OYST-CAL-D 500MG TABLET PO SCH ×2 (10:38→20:49)
[2022-11-15] MEDS: MESALAMINE 400 MG CAP PO SCH ×2 (10:38→17:40)
[2022-11-15] MEDS: IRON-VITAMIN-MINERAL CAPSULE PO SCH ×2 (10:39→17:42)
[2022-11-15] MEDS: ASCORBIC ACID 500 MG TAB PO SCH ×2 (10:39→20:49)
[2022-11-15] MEDS: MULTIVITAMINS/MINERALS TAB PO SCH (10:39)
[2022-11-15] MEDS: NYSTATIN/TRIAMCINOLONE 15 GM CR TOP SCH ×2 (10:39→15:18)
[2022-11-15] MEDS: ACETAMINOPHEN 325 MG TAB PO PRN ×2 (12:53→20:50)
[2022-11-15] MEDS ORDERED: IMMUNE GLOBULIN IV ONE (15:00)
[2022-11-15] MEDS ORDERED: HYDROMORPHONE 1MG/1ML INJ IV PRN (23:15)
[2022-11-16] VITALS (18 sets, daily range): BP systolic 85–121; BP diastolic 41–74
[2022-11-16] MEDS: FUROSEMIDE INJ 10 MG/ML 2 ML VIAL IV SCH ×2 (05:19→17:12)
[2022-11-16] MEDS: MESALAMINE 400 MG CAP PO SCH ×2 (05:19→17:13)
[2022-11-16] MEDS: LEVALBUTEROL HCL SOLN NEBU 0.63 MG/3 ML NEB INH SCH ×3 (07:00→18:50)
[2022-11-16 07:17] LABS: BASOPHILS % 0.4 % (0.0-1.0); EOSINOPHILS % 1.6 % (0.0-6.0); HEMATOCRIT 29.6 % (38.2-49.6); HEMOGLOBIN 9.2 g/dL (14.0-18.0); LYMPHOCYTES # (AUTO) 0.4 (1.0-3.2); LYMPHOCYTES % 15.5 % (18.0-39.1); MEAN CORPUSCULAR HEMOGLOBIN 26.7 pg (28-32); MEAN CORPUSCULAR HGB CONC 31.1 g/dL (31-35); MONOCYTES # (AUTO) 0.1 (0.2-0.8); MONOCYTES % 2.8 % (4.4-11.3); NEUTROPHILS # (AUTO) 1.7 (2.1-6.9); NEUTROPHILS % 66.2 % (38.7-80.0); PLATELET COUNT 166 x10e3/uL (140-360); RED BLOOD COUNT 3.44 x10e6/uL (4.3-5.7); RED CELL DISTRIBUTION WIDTH 15.7 % (11.7-14.4)
[2022-11-16 08:39] LABS: ALBUMIN 1.8 g/dL (3.5-5.0); ALBUMIN/GLOBULIN RATIO 0.5 (0.8-2.0); ANION GAP 15.4 mmol/L (8-16); CALCIUM 7.9 mg/dL (8.4-10.2); CREATININE, SERUM 0.89 mg/dL (0.72-1.25); POTASSIUM 3.4 mmol/L (3.5-5.1)
[2022-11-16] MEDS: DOCUSATE SODIUM 100 MG CAP PO SCH ×2 (09:00→16:19)
[2022-11-16] MEDS: NYSTATIN/TRIAMCINOLONE 15 GM CR TOP SCH ×2 (09:45→17:12)
[2022-11-16] MEDS: FAMOTIDINE 20 MG/2 ML VIAL IV SCH ×2 (09:45→17:12)
[2022-11-16] MEDS: BALSAM PERU/CASTOR OIL 60 GM OINT...G. TP SCH ×3 (09:45→20:36)
[2022-11-16] MEDS: COLLAGENASE 5 GM TUBE TP SCH (09:45)
[2022-11-16] MEDS: MULTIVITAMINS/MINERALS TAB PO SCH (09:46)
[2022-11-16] MEDS: ZINC SULFATE 50 MG CAP PO SCH ×2 (09:46→20:12)
[2022-11-16] MEDS: OYST-CAL-D 500MG TABLET PO SCH ×2 (09:46→20:12)
[2022-11-16] MEDS: CLINDAMYCIN 600MG / 50ML 50 ML IV SCH ×3 (09:46→23:49)
[2022-11-16] MEDS: LACTOBACILLUS ACIDOPHILUS CAPSULE PO SCH ×2 (09:46→20:12)
[2022-11-16] MEDS: METOPROLOL SUCCINATE 25 MG TAB XL PO SCH (09:47)
[2022-11-16] MEDS: ASCORBIC ACID 500 MG TAB PO SCH ×2 (09:47→20:12)
[2022-11-16] MEDS: IRON-VITAMIN-MINERAL CAPSULE PO SCH ×2 (09:47→20:13)
[2022-11-16] MEDS: ASPIRIN 81 MG ENTERIC COATED PO SCH (09:47)
[2022-11-16 09:54] LABS: BAND NEUTROPHILS % (MANUAL) 5 %; EOSINOPHILS % (MANUAL) 2 % (0-7); LYMPHOCYTES % (MANUAL) 13 % (19-48); METAMYELOCYTES % (MANUAL) 1 % (0-0); MONOCYTES % (MANUAL) 7 % (3.4-9.0); MYELOCYTES % (MANUAL) 2 % (0-0); NEUTROPHILS % (MANUAL) 70 % (40-74)
[2022-11-16 09:55] LABS: PLATELET ESTIMATE ADEQUATE; PLATELET MORPHOLOGY COMMENT NORMAL; RBC MORPHOLOGY COMMENT NORMAL; TOXIC GRANULATION SLIGHT
[2022-11-16] MEDS: ACETAMINOPHEN 325 MG TAB PO PRN ×2 (14:19→20:43)
[2022-11-16] MEDS ORDERED: POTASSIUM CHLORIDE 20MEQ/100ML 100 ML IV ONE (15:45)
[2022-11-17] VITALS (12 sets, daily range): BP systolic 83–123; BP diastolic 46–83
[2022-11-17] MEDS: LEVALBUTEROL HCL SOLN NEBU 0.63 MG/3 ML NEB INH SCH ×2 (02:45→07:55)
[2022-11-17] MEDS: FUROSEMIDE INJ 10 MG/ML 2 ML VIAL IV SCH (05:02)
[2022-11-17] MEDS: MESALAMINE 400 MG CAP PO SCH (05:03)
[2022-11-17] MEDS: METOPROLOL SUCCINATE 25 MG TAB XL PO SCH (08:57)
[2022-11-17] MEDS: FAMOTIDINE 20 MG/2 ML VIAL IV SCH (08:57)
[2022-11-17] MEDS: CLINDAMYCIN 600MG / 50ML 50 ML IV SCH (08:57)
[2022-11-17] MEDS: MULTIVITAMINS/MINERALS TAB PO SCH (08:58)
[2022-11-17] MEDS: ASPIRIN 81 MG ENTERIC COATED PO SCH (08:58)
[2022-11-17] MEDS: OYST-CAL-D 500MG TABLET PO SCH (08:58)
[2022-11-17] MEDS: ASCORBIC ACID 500 MG TAB PO SCH (08:58)
[2022-11-17] MEDS: IRON-VITAMIN-MINERAL CAPSULE PO SCH (08:58)
[2022-11-17] MEDS: ZINC SULFATE 50 MG CAP PO SCH (08:58)
[2022-11-17] MEDS: DOCUSATE SODIUM 100 MG CAP PO SCH (08:58)
[2022-11-17] MEDS: NYSTATIN/TRIAMCINOLONE 15 GM CR TOP SCH (08:58)
[2022-11-17] MEDS: LACTOBACILLUS ACIDOPHILUS CAPSULE PO SCH (08:58)
[2022-11-17] MEDS: BALSAM PERU/CASTOR OIL 60 GM OINT...G. TP SCH (08:59)
[2022-11-17] MEDS: COLLAGENASE 5 GM TUBE TP SCH (08:59)
[2022-11-17] MEDS ORDERED: POTASSIUM CHLORIDE 10MEQ EA PO ONE (11:30)
== END 2022-11-17 12:40 | DRG 853 ==
LOC: ER 09:51 → ERHOLD 11:07 → MED/SURG3 15:10 → ICU 11-03 11:51
PROVIDERS: ADMIT Internal Medicine; ATTEND Internal Medicine
PROC: 0Y6C0Z3 Detachment at Right Upper Leg, Low, Open Approach (ICD-10-PCS; principal; 2022-11-07 11:19)
DX: A41.53 Sepsis due to Serratia (principal); G93.41 Metabolic encephalopathy; I50.33 Acute on chronic diastolic (congestive) heart failure; I50.21 Acute systolic (congestive) heart failure; C91.10 Chronic lymphocytic leukemia of B-cell type not having achieved remission; L03.116 Cellulitis of left lower limb; L03.115 Cellulitis of right lower limb; K51.90 Ulcerative colitis, unspecified, without complications; D61.818 Other pancytopenia; B37.0 Candidal stomatitis; D84.9 Immunodeficiency, unspecified; R00.0 Tachycardia, unspecified; L89.150 Pressure ulcer of sacral region, unstageable; L89.892 Pressure ulcer of other site, stage 2; H26.9 Unspecified cataract; E78.5 Hyperlipidemia, unspecified; D64.9 Anemia, unspecified; E87.6 Hypokalemia; D69.6 Thrombocytopenia, unspecified; D70.9 Neutropenia, unspecified; I73.9 Peripheral vascular disease, unspecified; W19.XXXA Unspecified fall, initial encounter; Y92.009 Unspecified place in unspecified non-institutional (private) residence as the place of occurrence of the external cause; M60.9 Myositis, unspecified; R23.8 Other skin changes; I25.10 Atherosclerotic heart disease of native coronary artery without angina pectoris; R09.02 Hypoxemia; E83.42 Hypomagnesemia; E83.39 Other disorders of phosphorus metabolism; L97.519 Non-pressure chronic ulcer of other part of right foot with unspecified severity; I48.91 Unspecified atrial fibrillation; Z96.643 Presence of artificial hip joint, bilateral; Z20.822 Contact with and (suspected) exposure to COVID-19; Z90.49 Acquired absence of other specified parts of digestive tract; Z87.891 Personal history of nicotine dependence; Z92.21 Personal history of antineoplastic chemotherapy; Z66 Do not resuscitate
CPT/HCPCS: 36415; 70450; 71045; 74177; 74230; 75635; 76700; 80048; 80053; 80061; 80202; 81001; 82607; 82728; 82746; 82784; 82948; 83036; 83540; 83605; 83615; 83630; 83735; 83880; 83993; 84100; 84443; 84466; 85025; 85045; 85610; 86850; 86900; 86920; 87040; 87045; 87071; 87086; 87177; 87186; 87205; 87324; 87390; 87449; 88304; 88307; 88311; 93005; 93306; 93925; 93970; 94640; 94760; 94799; 99252; 99284; G0433; G0435; J0692; J0696; J1170; J1756; J1885; J1940; J2001; J2370; J2405; J3475; J3480; J7030; J7050; J7799; P9016; Q9967